=== PATIENT | male | born 1975 | race Two or more races ===

== ENCOUNTER 2021-08-09 09:51 | Outpatient (REF) | payer OTHER, SELFPAY ==
[2021-08-09 11:47] LABS: Estimated Average Glucose 266 mg/dL; Hemoglobin A1c % 10.9 %
[2021-08-09 12:13] LABS: Alanine Aminotransferase 59 U/L (0-40); Albumin Level 4.3 g/dL (3.5-5.0); Alkaline Phosphatase 74 U/L (39-117); Anion Gap 11 (12-20); Aspartate Amino Transferase 31 U/L (5-37); Bilirubin Total 0.7 mg/dL (0.0-1.0); Blood Urea Nitrogen 16 mg/dL (9-16); Calcium 9.2 mg/dL (8.4-10.2); Carbon Dioxide 28 mmol/L (22-29); Chloride 102 mmol/L (96-108); Cholesterol 208 mg/dL; Estimated Glomerular Filt Rate > 60; Glucose Fasting 299 mg/dL (60-99); HDL Cholesterol 48 mg/dL; LDL Cholesterol Calculated 144 mg/dl; Potassium 4.1 mmol/L (3.3-5.1); Sodium 137 mmol/L (135-145); Triglycerides 80 mg/dL
[2021-08-09 12:21] LABS: TSH reflex Free T4 1.07 uIU/mL (0.32-4.0)
[2021-08-09 12:25] LABS: Creatinine Urine 110.96 mg/dL; Microalbum/Creatinine Ratio Ur 69.3 ug/mg cr
[2021-08-09 12:46] LABS: Rheumatoid Factor < 15.0 IU/mL (<15.0)
[2021-08-10 17:36] LABS: Lyme Abs Screen <0.90 index
[2021-08-11 12:17] LABS: Anti Nuclear Antibody Screen NEGATIVE (NEGATIVE)
== END 2021-08-09 09:52 | disposition home or self-care (01) ==
LOC: HO.HMGCLDS 09:51
PROVIDERS: PCP Internal Medicine; Visit Provider Internal Medicine
DX: E11.9 Type 2 diabetes mellitus without complications (principal); E66.3 Overweight; E78.5 Hyperlipidemia, unspecified; I10 Essential (primary) hypertension
CPT/HCPCS: 36415; 80053; 80061; 82043; 83036; 84443; 86038; 86039; 86431; 86617; 86618

== ENCOUNTER 2022-09-16 11:03 | Outpatient (REF) | payer OTHER, SELFPAY ==
[2022-09-16 13:59] LABS: Estimated Average Glucose 160 mg/dL; Hemoglobin A1c % 7.2 %
[2022-09-16 14:01] LABS: Alanine Aminotransferase 28 U/L (0-40); Albumin Level 4.3 g/dL (3.5-5.0); Alkaline Phosphatase 51 U/L (39-117); Anion Gap 13 (12-20); Aspartate Amino Transferase 19 U/L (5-37); Bilirubin Total 0.5 mg/dL (0.0-1.0); Blood Urea Nitrogen 16 mg/dL (9-16); Calcium 9.1 mg/dL (8.4-10.2); Carbon Dioxide 25 mmol/L (22-29); Chloride 105 mmol/L (96-108); Cholesterol 195 mg/dL; Estimated Glomerular Filt Rate > 60; Glucose Fasting 130 mg/dL (60-99); HDL Cholesterol 57 mg/dL; LDL Cholesterol Calculated 125 mg/dl; Potassium 4.2 mmol/L (3.3-5.1); Sodium 139 mmol/L (135-145); Total Protein 6.8 g/dL (6.5-8.0); Triglycerides 69 mg/dL
[2022-09-16 14:20] LABS: Creatinine Urine 294.21 mg/dL; Microalbum/Creatinine Ratio Ur 65.5 ug/mg cr
== END 2022-09-16 11:04 | disposition home or self-care (01) ==
LOC: HO.HMGCLDS 11:03
PROVIDERS: PCP Internal Medicine; Visit Provider Internal Medicine
DX: E11.9 Type 2 diabetes mellitus without complications (principal); E78.5 Hyperlipidemia, unspecified; I10 Essential (primary) hypertension
CPT/HCPCS: 36415; 80053; 80061; 82043; 83036

== ENCOUNTER → 2022-10-17 12:59 | Outpatient (REF) | payer OTHER, SELFPAY | LOC: HO.SL 12:59 | PROVIDERS: PCP Internal Medicine; Visit Provider Internal Medicine | DX: G47.33 Obstructive sleep apnea (adult) (pediatric) (principal) | CPT/HCPCS: 95806 ==

== ENCOUNTER → 2022-11-01 08:04 | Outpatient (BNVA) | payer OTHER, SELFPAY | PROVIDERS: PCP Internal Medicine; Visit Provider Nurse Practitioner Family | DX: Z13.89 Encounter for screening for other disorder (principal) ==

== ENCOUNTER 2023-01-14 06:18 | Day surgery (SDC) | payer OTHER, SELFPAY ==
[2023-01-09 11:36] VITALS: BMI 43.4
--- NOTE | 2023-01-13 10:42 | HO.ANESPROP2 ---
Documented by User: Nyla Renteria NP 01/13/23 10:44 HPI - Anesthesia Eval Consult details Narrative: 47yo M for Colonoscopy FOR[facility]LY [facility] Active Problems Active Problems: All Active Problems (Updated 01/09/23 @ 11:27 by Kim Angeles RN) Acute sinus infection (Acute) Annual physical exam (Acute) Sleep apnea (Acute) Hyperlipemia (Acute) Overweight (Acute) HTN (hypertension) (Acute) DM type 2 (diabetes mellitus, type 2) (Acute) Past Medical History Medical History (Updated 01/14/23 @ 06:25 by Sabina Grimes RN) DM type 2 (diabetes mellitus, type 2) HTN (hypertension) Hyperlipemia Overweight Sleep apnea Surgical History Surgical History (Updated 01/14/23 @ 06:25 by Sabina Grimes RN) History of esophagogastroduodenoscopy (EGD) History of shoulder surgery Social History Social History Housing: House Do you presently have visiting nurse or other home services: No Patient Tobacco Use Status: Never used Tobacco e-Cigarette/Vaping Use: Never Used Current occupational status: employed Cognitive needs: No Hearing needs: No Vision needs: Yes Meds Allergies Allergy/AdvReac Type Severity Reaction Status Date / Time No Known Allergies Allergy Verified 01/14/23 06:26 [No Known Allergies*] Exam Exam Date and Time: January 13, 2023 1042 Height,Weight and Vital Signs: Height 5 ft 4 in Weight 114.759 kg Pertinent Lab Results Pertinent Lab Results: Laboratory Tests 09/20/19 09/16/22 13:12 11:07 Sodium 139 Potassium 4.2 Chloride 105 Carbon Dioxide 25 BUN 16 Creatinine 0.89 Assessment and Plan Assessment Anesthesia Assessment: Chart Reviewed Documented by User: Noah Rosenthal MD 01/14/23 17:57 PMFSH Past Medical History Medical History (Updated 01/14/23 @ 06:25 by Sabina Grimes RN) DM type 2 (diabetes mellitus, type 2) HTN (hypertension) Hyperlipemia Overweight Sleep apnea Functional capacity: independent ambulation Family History Family history of problems with anesthesia: No Surgical History Surgical History (Updated 01/14/23 @ 06:25 by Sabina Grimes RN) History of esophagogastroduodenoscopy (EGD) History of shoulder surgery History of Problems with Anesthesia: No Social History Social History Housing: House Do you presently have visiting nurse or other home services: No Patient Tobacco Use Status: Never used Tobacco e-Cigarette/Vaping Use: Never Used Current occupational status: employed Cognitive needs: No Hearing needs: No Vision needs: Yes Meds Allergies Allergy/AdvReac Type Severity Reaction Status Date / Time No Known Allergies Allergy Verified 01/14/23 06:26 [No Known Allergies*] Exam Airway Mallampati Class: III Neck ROM: Full Loose/Missing/Broken Teeth: Yes Assessment and Plan Final Anesthetic Review Family History of Problems with Anesthesia: No History of Problems with Anesthesia: No NPO: Yes ASA Class: III Final Preanesthetic Review: Meds/Allgs Chart Reviewed, Consent Obtained/Reviewed and Anes Risks/Benef Reviewed Patient Risk: Intermediate Procedure Risk: Intermediate Anesthetic Plan Anesthetic Plan: MAC: Disposition: Standard PACU
[2023-01-14 06:33] VITALS: BP 172/97; PULSE 87; RESP 16; TEMP 36.3; O2SAT 95
--- NOTE | 2023-01-14 06:42 | P.HPSUR_ITS ---
Pre-Procedural Eval Section A Date of Service: 01/14/23 Section B Chief Complaint: screening Relevant Family History (Specify if Yes): No Relevant Social History: None Present Medications: see Short Stay Collaborative assessment Medical History: Significant History (DM type 2 (diabetes mellitus, type 2) HTN (hypertension) Hyperlipemia Overweight Sleep apnea) History of Previous Operations: Relevant previous surgery/procedure and date(s) (egd,shoulder surgery) Allergies: Allergies Allergy/AdvReac Type Severity Reaction Status Date / Time No Known Allergies Allergy Verified 01/14/23 06:26 [No Known Allergies*] Review of Systems Sugical H&P ROS: Negative: Constitution, Cardiovascular, Respiratory, Neurological, Psychiatric, Hem-Onc, Allergic/Immunologic, Gastrointestinal, Genitourinary, Musculoskeletal, Integumentary, Endocrine and Eyes/Ears/No se/Throat Exam Surgical H&P Exam: Normal: HEENT, Normal: Heart, Normal: Lungs, Normal: Extremities, Normal: Abdomen, Normal: Skin and Normal: Neurological Plan Diagnosis/Plan: Unchanged I have reviewed the history and physical and performed a pertinent physical examination on my patient. No changes have occurred unless specified. Time Spent With Patient Time: Total time managing care of this patient today ____ minutes.
[2023-01-14] MEDS: Lactated Ringers 1,000 ML 100 ML IVCONT (06:47)
[2023-01-14 06:52] LABS: Glucose, Whole Blood 99 mg/dL (60-115)
--- NOTE | 2023-01-14 08:04 | W.PM.OPN ---
Operative Note Operative Note Date of Service: 01/14/23 Narrative: Operative Information Procedure Description: Colonoscopy Indication: screening Anesthesia: MAC COLONOSCOPY Instrument: Olympus variable stiffness pediatric scope 190L Colonoscopy Monitoring: Vital signs and clinical assessment, continuous EKG monitoring, Pulse oximetry, Carbon Dioxide monitoring and blood pressure monitoring were done throughout the procedure. Colon withdrawal time was 8 minutes. Procedure: The patient was placed in the left lateral decubitis position and pre-procedure medications were administered. After a digital rectal examination of the ano-rectum, the video colonoscope was inserted into the rectum and advanced through the colon to the cecum/TI. The colonoscope was slowly withdrawn in a retrograde panoramic fashion and the colon mucosa was carefully examined including a retroflexed view of the rectum. Findings and interventions are described below. Procedure Difficulty: easy Findings: Terminal Ileum-normal Cecum:normal Ascending Colon: 8-10 mm sessile polyp removed with cold snare Transverse Colon -normal Descending Colon:normal Sigmoid Colon: normal Rectum: Retroflexion with small internal hemorrhoids, grade I, x2 sessile polyps 4-6 mm removed with cold forceps Anorectum - normal Colon preparation: [place] Bowel Preparation Scale Right colon; 2 Transverse colon: 2 Left colon; 2 (0 = Unprepared colon segment with mucosa not seen due to solid stool that cannot be cleared. 1 = Portion of mucosa of the colon segment seen, but other areas of the colon segment not well seen due to staining, residual stool and/or opaque liquid. 2 = Minor amount of residual staining, small fragments of stool and/or opaque liquid, but mucosa of colon segment seen well. 3 = Entire mucosa of colon segment seen well with no residual staining, small fragments of stool or opaque liquid) Impression and Post Procedure Diagnosis: polyps internal hemorrhoids Plan: High fiber diet leaflet Avoid straining at stool, epsom salts and sitz bath, anusol supps or cream Repeat Colonoscopy in 5 years due to polyps or earlier if clinically indicated Above findings were reviewed with the patient and relevant handouts were provided if indicated.
[2023-01-14 08:08] VITALS: BP 151/92; PULSE 85; RESP 16; TEMP 37.1; O2SAT 97
[2023-01-14 08:23] VITALS: BP 171/105; PULSE 86; RESP 18; TEMP 36.1; O2SAT 97
== END 2023-01-14 08:46 | disposition home or self-care (01) ==
PROVIDERS: PCP Registered Nurse; Visit Provider Internal Medicine Gastroenterology
PROC: 0DJD8ZZ Inspection of Lower Intestinal Tract, Via Natural or Artificial Opening Endoscopic (ICD-10-PCS; CPT 45378; principal; 2023-01-14 07:30)
DX: Z12.11 Encounter for screening for malignant neoplasm of colon (principal); D12.2 Benign neoplasm of ascending colon; D12.8 Benign neoplasm of rectum; K64.0 First degree hemorrhoids; I10 Essential (primary) hypertension; E78.5 Hyperlipidemia, unspecified; E66.3 Overweight; Z68.41 Body mass index [BMI] 40.0-44.9, adult; G47.30 Sleep apnea, unspecified; E11.9 Type 2 diabetes mellitus without complications; Z79.4 Long term (current) use of insulin
CPT/HCPCS: 45385; 45380; 82947; 88305

== ENCOUNTER 2023-06-04 11:26 | Outpatient (AMB) | payer OTHER, SELFPAY ==
[2023-06-04 11:27] VITALS: BP 156/100; PULSE 102; O2SAT 96; BMI 43.4
--- NOTE | 2023-06-04 11:27 | A.OFFPC_ITS ---
Vital Signs 06/04/23 11:27 Height 5 ft 4 in Weight 253 lb BMI 43.4 BP 156/100 H Blood Pressure Location Lt brachial Position Sitting Pulse 102 H Pulse Source Pulse Oximeter Pulse Oximetry (%) 96 Oxygen Delivery Method Room Air Intake Visit Reasons: [facility]/ 06-01/Dizziness/ Vomitting Intake Note: Pt is here today for ER follow up visit. 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 Allergies No Known Allergies [No Known Allergies*] Allergy (Verified 06/04/23 11:29) Medication List - Last Reconciled 06/04/23 by Renetta Matute MD amlodipine 5 mg PO DAILY amlodipine-benazepril 10-40 mg 1 cap PO DAILY docusate sodium 100 mg PO DAILY dulaglutide (Trulicity) 1.5 mg (0.5 mL) subcut QWEEK flash glucose scanning reader (Extreme DA Ceci 14 Day [place]) As directed flash glucose sensor (DroplrStyle Ceci 14 Day Sensor kit) monitor blood sugar, change every 14 days fluticasone propionate 50 mcg/actuation (Flonase Allergy Relief) 1 spray intranasal Q12H 30 days insulin degludec (Tresiba FlexTouch U-100 insulin) 30 units (0.3 mL) subcut DAILY lisinopril 40 mg PO DAILY metoprolol succinate ER 100 mg PO DAILY Tobacco use date assessed: 06/04/23 HPI [place]/ 06-01/Dizziness/ Vomitting HPI Details Pt c/o recurrent episodes of dizziness with nausea, vomiting and went to ER twice in the last month. Pt c/o L ear tinnitus and notice some hearing loss for a few months. Pt tried Meclizine without relief. Insulin-dependent diabetes has not been well controlled. Patient sees pin machine tender occasionally the last time 3 months and he is planning to schedule an appointment with the next week. He ran out of insulin for a few days but has been able to feel the prescription now. He has been taking amlodipine 5 mg and lisinopril 40 mg for hypertension. [facility]LY [facility] Medical History (Updated 06/04/23 @ 12:28 by Renetta Matute MD) Sleep apnea Hyperlipemia Overweight HTN (hypertension) DM type 2 (diabetes mellitus, type 2) Surgical History (Updated 01/31/23 @ 12:19 by Tee Cardoso) Hx of colonoscopy History of shoulder surgery History of esophagogastroduodenoscopy (EGD) Family History (Updated 06/04/23 @ 11:34 by Roya Lazaro [place]) Father No problems noted. Mother Substance use disorder Social History Housing: House Do you presently have visiting nurse or other home services: No Patient Tobacco Use Status: Never used Tobacco e-Cigarette/Vaping Use: Never Used Current occupational status: employed Cognitive needs: No Hearing needs: No Vision needs: Yes Questionnaire PHQ-9 Over the last 2 weeks, how often have you been bothered by any of the following problems? 1. Little interest or pleasure in doing things: not at all 2. Feeling down, depressed, or hopeless: not at all 3. Trouble falling or staying asleep, or sleeping too much: not at all 4. Feeling tired or having little energy: not at all 5. Poor appetite or overeating: not at all 6. Feeling bad about yourself - or that you are a failure or have let yourself or your family down: not at all 7. Trouble concentrating on things, such as reading the newspaper or watching television: not at all 8. Moving or speaking so slowly that other people could have noticed. Or the opposite - being so fidgety or restless that you have been moving around a lot more than usual: not at all 9. Thoughts that you would be better off or of hurting yourself in some way: not at all Total score: 0 Depression Screening Interpretation: Negative Depression Screening Done: Yes Source: Developed by Drs. Abimael Dinh, Hedy Lockett, Damon Frank and colleagues, with an educational reggie from [employer]. Thrive Questionnaire Date Thrive assessed: 06/04/23 I am a: Patient What is your living situation today?: I have a steady place to live Within the past 12 months, did the food you bought not last and you didn't have the money to get more?: Never true Within the past 12 months, did you worry whether your food would run out before you got money to buy more?: Never true Do you have trouble paying for medicines?: No Do you have trouble getting transportation to medical appointments?: No Do you have trouble paying your heating and electricity bill?: No Do you have trouble taking care of your child, family member or friend?: No Do you have trouble with day-to-day activities such as bathing, preparing meals, shopping, managing finances, etc.?: No Are you currently unemployed and looking for a job?: No Are you interested in more education?: No Please select the resources that you would like help with: None FAITH-7 AMB Questionnaire FAITH-7 Date FAITH - 7 assessed: 06/04/23 Feeling nervous, anxious, or on edge: 0 = Not at all Not being able to stop or control worryin = Not at all Worrying too much about different things: 0 = Not at all Trouble relaxin = Not at all Being so restless that it is hard to sit still: 0 = Not at all Becoming easily annoyed or irritable: 0 = Not at all Feeling afraid as if something awful might happen: 0 = Not at all Total FAITH-7 score (0-4 normal; 5-9 mild; 10-14 moderate; 15-21 severe): 0 Source: Developed by Drs. Abimael Dinh, Hedy Lockett, Damon Frank and colleagues, with an educational reggie from [employer]. Review of Systems Const All systems reviewed & are unremarkable except as noted in HPI and below Reports no additional complaints Eyes Reports no additional complaints ENT Reports no additional complaints Card Reports no additional complaints Resp Reports no additional complaints GI Reports no additional complaints Physical exam (Primary Care) Vital Signs: Last Vital Signs Pulse 102 H 06/04/23 11:27 BP 156/100 H 06/04/23 11:27 Pulse Ox 96 06/04/23 11:27 Oxygen Delivery Method Room Air 06/04/23 11:27 BMI result Body Mass Index 43.4 Tobacco/Smoking Status: Tobacco use Status Tobacco use date assessed 06/04/23 06/04/23 11:33 Patient Tobacco Use Status Never used Tobacco 06/04/23 11:33 e-Cigarette/Vaping Use Never Used 06/04/23 11:33 PHQ-9: PHQ-9 Score PHQ-9: Total score 0 06/04/23 12:10 Depression Screening Interpretation: Negative Thrive Assessment: Date of Thrive Assessment Date Thrive assessed 06/04/23 06/04/23 11:33 Const General: no acute distress HENMT Head: Yes normal to inspection Ears: hearing grossly normal bilaterally and TM's normal bilaterally General nose exam: Normal external nose present Face and sinus: Yes normal facial exam Throat: Yes posterior oropharynx normal Eyes General: appearance normal, both eyes and all related structures Neck Neck: Yes no lymphadenopathy and Yes supple Resp Effort & Inspection: normal respiratory effort Auscultation: clear to auscultation bilaterally Cardio Rhythm: regular rhythm Heart sounds: S1 normal heart sound present and S2 normal heart sound present GI Inspection: Yes normal to inspection Palpation (GI): Soft to palpation Percussion: Yes normal to percussion Auscultation: normal bowel sounds Assessment and Plan Assessment & Plan (1) Vertigo: Code(s): R42 - Dizziness and giddiness Plan: For persistent vertigo with some hearing lost and left-sided tinnitus MRI of her brain will be obtained to rule out acoustic neuroma or CVA. Patient will be referred to ENT for evaluation of hearing loss and tinnitus (2) Tinnitus: Code(s): H93.19 - Tinnitus, unspecified ear (3) Hearing loss: Code(s): H91.90 - Unspecified hearing loss, unspecified ear (4) HTN (hypertension): Code(s): I10 - Essential (primary) hypertension Plan: Change 5 mg of amlodipine and 40 mg of lisinopril to Lotrel 10/40 and add labetalol 200 mg twice a day follow-up in 2 weeks for blood pressure check (5) DM type 2 (diabetes mellitus, type 2): Code(s): E11.9 - Type 2 diabetes mellitus without complications Plan: ADA diet increase physical activity weight loss discussed with the patient. He will continue the same medications and will call to schedule an appointment with his pin machine tender. Patient will have a fasting labs including A1c before his next visit (6) Hyperlipemia: Code(s): E78.5 - Hyperlipidemia, unspecified Plan: Check lipid profile Orders: Orders MR brain wo/w con w neuroquant Today H93.19 - Tinnitus, unspecified ear, R42 - Dizziness and giddiness Comprehensive [place]. Panel Fast Today E11.9 - Type 2 diabetes mellitus without complications, E78.5 - Hyperlipidemia, unspecified, I10 - Essential (primary) hypertension Microalbumin, Random (w Creat) Today E11.9 - Type 2 diabetes mellitus without complications, E78.5 - Hyperlipidemia, unspecified, I10 - Essential (primary) hypertension Hemoglobin A1c Today E11.9 - Type 2 diabetes mellitus without complications, E78.5 - Hyperlipidemia, unspecified, I10 - Essential (primary) hypertension Lipid Panel Today E11.9 - Type 2 diabetes mellitus without complications, E78.5 - Hyperlipidemia, unspecified, I10 - Essential (primary) hypertension Complete Blood Count Auto Diff Today E11.9 - Type 2 diabetes mellitus without complications, E78.5 - Hyperlipidemia, unspecified, I10 - Essential (primary) hypertension Referrals Ear/Nose/Throat Referral H91.90 - Unspecified hearing loss, unspecified ear, H93.19 - Tinnitus, unspecified ear, R42 - Dizziness and giddiness Medications: New labetalol 200 mg PO BID 180 tabs 0RF amlodipine-benazepril 10-40 mg 1 cap PO DAILY 30 caps 0RF azithromycin start on day 2 of therapy 250 mg PO DAILY 6 tabs 0RF 6 days Discontinued amlodipine Discontinued Reason: Doctor's Order 5 mg PO DAILY 30 tabs 4RF Coding Level of Care Code Est Pt Level 4 (24567) Diagnoses Vertigo R42 Tinnitus H93.19 Hearing loss H91.90 HTN (hypertension) I10 DM type 2 (diabetes mellitus, type 2) E11.9 Hyperlipemia E78.5
== END 2023-06-04 12:54 | disposition home or self-care (01) ==
PROVIDERS: PCP Internal Medicine; Visit Provider Internal Medicine
DX: R42 Dizziness and giddiness (principal); E11.9 Type 2 diabetes mellitus without complications; H93.12 Tinnitus, left ear; H91.92 Unspecified hearing loss, left ear; I10 Essential (primary) hypertension; E78.5 Hyperlipidemia, unspecified
CPT/HCPCS: 99214

== ENCOUNTER 2023-07-09 12:59 | Outpatient (AMB) | payer OTHER, SELFPAY ==
[2023-07-09 13:15] VITALS: BP 140/100; PULSE 89; TEMP 36.1; O2SAT 98; BMI 44.5
--- NOTE | 2023-07-09 13:15 | AM.OFFWIN_ITS ---
Intake Vital Signs 07/09/23 13:15 Height 5 ft 4 in Weight 259 lb BMI 44.5 BP 140/100 H Blood Pressure Location Lt brachial Position Sitting Pulse 89 Pulse Source Pulse Oximeter Temp 97.0 F Temp Source Temporal Artery Scan Pulse Oximetry (%) 98 Oxygen Delivery Method Room Air Intake Visit Reasons: EP, chest congestion ([phone]) Intake Note: pt is here today for chest congestion started friday Patient Tobacco Use Status: Never used Tobacco Allergies No Known Allergies [No Known Allergies*] Allergy (Verified 07/09/23 13:16) Do you need a note to return to daycare/school/sports/work: No HPI HPI Comments History of Present Illness Details Pt is a diabetic who presents with covid Onset last tested + Friday He said + congestion, facial sinus pressure cough Slight phlegm No OTC medicine taken Sugar controlled No fever or chills + fatigue No body aches No dizziness or LOC PFSH Medical History (Updated 07/09/23 @ 13:56 by Liz Friedman PA-C) Sleep apnea Hyperlipemia Overweight HTN (hypertension) DM type 2 (diabetes mellitus, type 2) Surgical History (Updated 01/31/23 @ 12:19 by Tee Cardoso) Hx of colonoscopy History of shoulder surgery History of esophagogastroduodenoscopy (EGD) Family History (Updated 06/04/23 @ 11:34 by Roya Lazaro [place]) Father No problems noted. Mother Substance use disorder Social History Housing: House Do you presently have visiting nurse or other home services: No Patient Tobacco Use Status: Never used Tobacco e-Cigarette/Vaping Use: Never Used Current occupational status: employed Cognitive needs: No Hearing needs: No Vision needs: Yes Review of Systems Const Denies chills, Reports fatigue and Denies fever(s) Eyes Denies change in vision ENT Denies otalgia, Reports nasal congestion, Reports sinus pain, Reports sinus pressure, Denies sore throat and Denies throat swelling Card Denies chest pain and Denies dyspnea Resp Reports cough and Denies dyspnea Musc Denies myalgias Endo Reports fatigue Aller/Immun Denies throat swelling Physical Exam Vital Signs: Last Vital Signs Temp 97.0 F 07/09/23 13:15 Pulse 89 07/09/23 13:15 BP 140/100 H 07/09/23 13:15 Pulse Ox 98 07/09/23 13:15 Oxygen Delivery Method Room Air 07/09/23 13:15 BMI result Body Mass Index 44.5 General: Non-toxic, NAD. Speaking full sentences. Skin: Warm dry throughout Eye: EOMI HENT: Airway patent. Uvula midline. No pharyngeal erythema or edema. No ANIMAL BREEDER. +rhinorrhea Bilateral canals clear. TM non-erythematous, non-bulging. No TM perforation or hemotympanum noted. Respiratory: CTA bilaterally. No wheezes, rales or rhonchi Cardiac: RRR. No murmur MSK: Full ROM extremities. Neurology: A/O. No aphasia or facial droop. Gait without abnormality Psych: Good mood and affect Assessment & Plan Assessment & Plan (1) HTN (hypertension): Code(s): I10 - Essential (primary) hypertension Qualifiers: Hypertension type: unspecified Qualified Code(s): I10 - Essential (primary) hypertension Plan: we discussed control he has not taken his meds today Will monitor (2) Upper respiratory disease: Code(s): J39.9 - Disease of upper respiratory tract, unspecified (3) COVID: Code(s): U07.1 - COVID-19 Plan Lungs CTA HTN addressed Albuterol refill provided Prednisone/Benzonatate for cough No xray at this time due to clear lungs F/U with PCP Discussed 5 day isolation and then 5 additional day mask wearing ED if worsening All questions answered and he gave verbal understanding Medications: New albuterol sulfate 1.25 mg (3 mL) inhalation Q4-6H PRN 75 mL 0RF shortness of breath or wheezing U07.1 - COVID-19 prednisone 40 mg (2 x 20 mg) PO DAILY 4 days 8 tabs 0RF U07.1 - COVID-19 benzonatate 100 mg PO BID-TID PRN 14 caps 0RF cough U07.1 - COVID-19 Coding Level of Care Code Est Pt Level 3 (44071) Diagnoses Hypertension, unspecified type I10 Hypertension type: unspecified Upper respiratory disease J39.9 COVID U07.1
== END 2023-07-09 14:31 | disposition home or self-care (01) ==
PROVIDERS: PCP Internal Medicine; Visit Provider Physician Assistant
DX: I10 Essential (primary) hypertension (principal); J39.9 Disease of upper respiratory tract, unspecified; U07.1 COVID-19
CPT/HCPCS: 99213

== ENCOUNTER 2023-07-14 11:21 | Outpatient (AMB) | payer OTHER, SELFPAY ==
--- NOTE | 2023-07-14 12:54 | MHC.OFFWIV ---
Intake Vital Signs 07/14/23 12:55 Height 5 ft 4 in Weight 259 lb BMI 44.5 BP 160/100 H Blood Pressure Location Lt brachial Position Sitting Pulse 87 Pulse Source Pulse Oximeter Temp 97.9 F Pulse Oximetry (%) 96 Oxygen Delivery Method Room Air Intake Visit Reasons: EP, right side rib pain [phone] Intake Note: pt is here today for rt side rib pain started friday Patient Tobacco Use Status: Never used Tobacco Allergies No Known Allergies [No Known Allergies*] Allergy (Verified 07/14/23 13:13) Do you need a note to return to daycare/school/sports/work: Yes HPI EP, right side rib pain [phone] HPI Details 48-year-old male presents to the office for a sick visit. Patient tested positive for COVID last week. He has been having a lot of cough and in the process sprain the muscles around the rib in the past 3 days. His work has advised him to go on short-term disability. For that patient had to be re-evaluated here. COVID symptoms are improving. His cough is getting better. [facility] Medical History (Updated 07/09/23 @ 13:56 by Liz Friedman PA-C) Sleep apnea Hyperlipemia Overweight HTN (hypertension) DM type 2 (diabetes mellitus, type 2) Surgical History (Updated 01/31/23 @ 12:19 by Tee Cardoso) Hx of colonoscopy History of shoulder surgery History of esophagogastroduodenoscopy (EGD) Family History (Updated 06/04/23 @ 11:34 by Roya Lazaro [facility]) Father No problems noted. Mother Substance use disorder Social History Housing: House Do you presently have visiting nurse or other home services: No Patient Tobacco Use Status: Never used Tobacco e-Cigarette/Vaping Use: Never Used Current occupational status: employed Cognitive needs: No Hearing needs: No Vision needs: Yes Physical Exam Vital Signs: Last Vital Signs Temp 97.9 F 07/14/23 12:55 Pulse 87 07/14/23 12:55 BP 160/100 H 07/14/23 12:55 Pulse Ox 96 07/14/23 12:55 Oxygen Delivery Method Room Air 07/14/23 12:55 BMI result Body Mass Index 44.5 Const General: cooperative and healthy appearing Nutritional Appearance: well nourished Orientation/consciousness: patient oriented x3 Limitations: no limitations HEENT Head: Yes normal to inspection Eyes General: appearance normal, both eyes and all related structures Neck Neck: Yes normal visual inspection Resp Effort & Inspection: normal respiratory effort Neuro General: patient oriented x3 Assessment & Plan Assessment & Plan (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 Documentation for the short-term disability done. No medication needed at the moment. Coding Level of Care Code Est Pt Level 3 (61868) Diagnoses Costal chondritis M94.0
[2023-07-14 12:55] VITALS: BP 160/100; PULSE 87; TEMP 36.6; O2SAT 96; BMI 44.5
== END 2023-07-14 13:46 | disposition home or self-care (01) ==
PROVIDERS: PCP Internal Medicine; Visit Provider Internal Medicine
DX: M94.0 Chondrocostal junction syndrome [Tietze] (principal)
CPT/HCPCS: 99213

== ENCOUNTER 2023-07-16 10:54 | Outpatient (AMB) | payer OTHER, SELFPAY ==
--- NOTE | 2023-07-16 12:05 | MHC.PC.OV ---
Vital Signs 07/16/23 12:06 Height 5 ft 4 in Weight 254 lb BMI 43.6 BP 130/92 H Blood Pressure Location Lt brachial Position Sitting Pulse 90 Pulse Source Pulse Oximeter Pulse Oximetry (%) 96 Oxygen Delivery Method Room Air Intake Visit Reasons: 2 week Follow up Intake Note: Pt is here today for 2 weeks follow up visit. Allergies No Known Allergies [No Known Allergies*] Allergy (Verified 07/16/23 12:07) Medication List - Last Reconciled 07/16/23 by Renetta Matute MD albuterol sulfate 1.25 mg (3 mL) inhalation Q4-6H PRN amlodipine-benazepril 10-40 mg 1 cap PO DAILY docusate sodium 100 mg PO DAILY dulaglutide (Trulicity) 1.5 mg (0.5 mL) subcut QWEEK flash glucose scanning reader ([employer] Ceci 14 Day [place]) As directed flash glucose sensor ([employer] Ceci 14 Day Sensor kit) monitor blood sugar, change every 14 days fluticasone propionate 50 mcg/actuation (Flonase Allergy Relief) 1 spray intranasal Q12H 30 days insulin degludec (Tresiba FlexTouch U-100 insulin) 30 units (0.3 mL) subcut DAILY labetalol 200 mg PO BID Tobacco use date assessed: 06/04/23 HPI 2 week Follow up HPI Details Pt presents for f/u HTN, IDDM. Patient reports improved fasting blood glucose reading down to less than 200s most of the days. Patient has been tolerating Trulicity well. He has been following ADA diet [facility] Medical History (Updated 07/09/23 @ 13:56 by Liz Friedman PA-C) Sleep apnea Hyperlipemia Overweight HTN (hypertension) DM type 2 (diabetes mellitus, type 2) Surgical History (Updated 01/31/23 @ 12:19 by Tee Cardoso) Hx of colonoscopy History of shoulder surgery History of esophagogastroduodenoscopy (EGD) Family History (Updated 06/04/23 @ 11:34 by Roya Lazaro Heaven) Father No problems noted. Mother Substance use disorder Social History Housing: House Do you presently have visiting nurse or other home services: No Patient Tobacco Use Status: Never used Tobacco e-Cigarette/Vaping Use: Never Used Current occupational status: employed Cognitive needs: No Hearing needs: No Vision needs: Yes Questionnaire Thrive Questionnaire Date Thrive assessed: 06/04/23 FAITH-7 AMB Questionnaire FAITH-7 Date FAITH - 7 assessed: 06/04/23 Source: Developed by Drs. Abimael Dinh, Hedy Lockett, Damon Frank and colleagues, with an educational reggie from [employer]. Review of Systems Const All systems reviewed & are unremarkable except as noted in HPI and below Reports no additional complaints Eyes Reports no additional complaints ENT Reports no additional complaints Card Reports no additional complaints Resp Reports no additional complaints GI Reports no additional complaints Physical exam (Primary Care) Vital Signs: Last Vital Signs Pulse 90 07/16/23 12:06 BP 130/92 H 07/16/23 12:06 Pulse Ox 96 07/16/23 12:06 Oxygen Delivery Method Room Air 07/16/23 12:06 BMI result Body Mass Index 43.6 Tobacco/Smoking Status: Tobacco use Status Tobacco use date assessed 06/04/23 07/16/23 12:09 Patient Tobacco Use Status Never used Tobacco 07/16/23 12:09 e-Cigarette/Vaping Use Never Used 07/16/23 12:09 Thrive Assessment: Date of Thrive Assessment Date Thrive assessed 06/04/23 07/16/23 12:09 Const General: no acute distress HENMT Ears: hearing grossly normal bilaterally Eyes General: appearance normal, both eyes and all related structures Resp Effort & Inspection: normal respiratory effort Auscultation: clear to auscultation bilaterally Cardio Rhythm: regular rhythm Heart sounds: S1 normal heart sound present and S2 normal heart sound present GI Palpation (GI): Soft to palpation Percussion: Yes normal to percussion Auscultation: normal bowel sounds Assessment and Plan Assessment & Plan (1) HTN (hypertension): Code(s): I10 - Essential (primary) hypertension Qualifiers: Hypertension type: unspecified Qualified Code(s): I10 - Essential (primary) hypertension Plan: Add Dyazide to amlodipine and benazepril and check BMP in 1 week, low sodium diet increase exercise weight loss discussed with the patient (2) DM type 2 (diabetes mellitus, type 2): Code(s): E11.9 - Type 2 diabetes mellitus without complications Plan: ADA diet increase physical activity weight loss discussed with the patient, Patient was advised to continue Trulicity and Tresiba and add Humalog with sliding scale before main meals (3) Overweight: Code(s): E66.3 - Overweight Plan: Weight loss discussed with the patient follow-up in 1 month with fasting labs before Orders: Orders Basic Metabolic Panel 1 Week I10 - Essential (primary) hypertension Medications: New Novolog PenFill U-100 Insulin (insulin aspart U-100) 6 units before meal if glucose is 90-160, 12 units for >160 12 , 10 units (0.1 mL) subcut TID 15 mL 3RF NS triamterene-hydrochlorothiazid 37.5-25 mg 1 tab PO DAILY 90 tabs 1RF Discontinued labetalol Discontinued Reason: Doctor's Order 200 mg PO BID 180 tabs 0RF Coding Level of Care Code Est Pt Level 4 (10531) Diagnoses Hypertension, unspecified type I10 Hypertension type: unspecified DM type 2 (diabetes mellitus, type 2) E11.9 Overweight E66.3
[2023-07-16 12:06] VITALS: BP 130/92; PULSE 90; O2SAT 96; BMI 43.6
== END 2023-07-16 15:52 | disposition home or self-care (01) ==
PROVIDERS: PCP Internal Medicine; Visit Provider Internal Medicine
DX: I10 Essential (primary) hypertension (principal); E11.9 Type 2 diabetes mellitus without complications; E66.3 Overweight
CPT/HCPCS: 99214

== ENCOUNTER 2023-08-04 12:11 | Outpatient (REF) | payer OTHER, SELFPAY ==
[2023-08-04 14:08] LABS: Alanine Aminotransferase 37 U/L (0-40); Albumin Level 4.4 g/dL (3.5-5.0); Alkaline Phosphatase 65 U/L (39-117); Anion Gap 11 (12-20); Aspartate Amino Transferase 23 U/L (5-37); Bilirubin Total 0.6 mg/dL (0.0-1.0); Blood Urea Nitrogen 16 mg/dL (9-16); Calcium 9.2 mg/dL (8.4-10.2); Carbon Dioxide 28 mmol/L (22-29); Chloride 102 mmol/L (96-108); Cholesterol 210 mg/dL (<200); Estimated Glomerular Filt Rate > 60; Glucose Fasting 142 mg/dL (60-99); HDL Cholesterol 44 mg/dL (>40); LDL Cholesterol Calculated 153 mg/dL (<100); Sodium 137 mmol/L (135-145); Total Protein 7.4 g/dL (6.5-8.0); Triglycerides 69 mg/dL (<150)
== END 2023-08-04 12:12 | disposition home or self-care (01) ==
LOC: HO.HMGCLDS 12:11
PROVIDERS: PCP Internal Medicine; Visit Provider Internal Medicine
DX: I10 Essential (primary) hypertension (principal); E11.9 Type 2 diabetes mellitus without complications; E78.5 Hyperlipidemia, unspecified
CPT/HCPCS: 36415; 80053; 80061; 82043; 82570; 83036; 85025

== ENCOUNTER 2023-08-05 13:10 | Outpatient (REF) | payer OTHER, SELFPAY ==
--- NOTE | ~2023-08-05 | MR_ITS ---
EXAMINATION: MR BRAIN WITHOUT AND WITH CONTRAST CLINICAL INFORMATION: 48-year-old with tinnitus and vertigo. COMPARISON: None available. TECHNIQUE: Multiplanar, multisequence MRI of the brain was obtained before and after the intravenous administration of 10 mL Gadavist. FINDINGS: BRAIN VOLUME: Within normal limits within the limitations of qualitative assessment. STRUCTURAL: Incidental note is made of a cavum septum pellucidum and cavum vergae, normal variant. BRAIN AND MENINGES: DWI sequence demonstrates no restricted diffusion to suggest acute or subacute cerebral ischemia. The brain is normal in morphology. There is a 5 mm nonspecific focus of FLAIR/T2 hyperintensity in the subcortical white matter along the right mesial frontal convexity. There is a nonspecific punctate FLAIR signal hyperintensity in the right periatrial white matter. Otherwise, the remainder of the brain is normal in signal intensity. Gradient refocused imaging demonstrates no abnormal susceptibility-weighted signal loss to suggest hemorrhage, hemosiderin staining or abnormal mineralization. No extra-axial fluid collections, space-occupying process or mass effect are identified. VENTRICLES AND SUBARACHNOID SPACES: The ventricular system and subarachnoid spaces are within normal range; there is no hydrocephalus. ORBITAL STRUCTURES: The visualized orbital structures are grossly unremarkable within the limitations of the study. VASCULAR: Signal voids are noted in the visualized major intracranial vessels. There is considerable tortuosity of both carotid siphons which makes it difficult to exclude aneurysms at this location. If this is a clinical concern, MR angiography of the brain would be of additional value to further assess. OSSEOUS STRUCTURES, SINUSES/MASTOIDS, EXTRACRANIAL SOFT TISSUES: Unremarkable. MR/MR head/brain wo/w con IMPRESSION: 1. A few small nonspecific white matter T2 hyperintensities are noted in the right cerebral hemisphere as described above, of indeterminate significance. 2. No acute intracranial process. No evidence for infarction, hemorrhage, extra-axial fluid collection, space-occupying process, mass effect or hydrocephalus. 3. Tortuous appearance to the carotid siphons bilaterally which makes it difficult to exclude aneurysms at this location. MR angiography of the brain would be of additional value to further assess this if clinically warranted.
[2023-08-05] MEDS: gadobutroL 10 ML VIAL IVPUSH (14:21)
== END 2023-08-05 13:11 | disposition home or self-care (01) ==
LOC: HO.MRI 13:10
PROVIDERS: PCP Internal Medicine; Visit Provider Internal Medicine
DX: H93.19 Tinnitus, unspecified ear (principal); R42 Dizziness and giddiness
CPT/HCPCS: 70553; A9585

== ENCOUNTER 2023-09-15 13:54 | Outpatient (AMB) | payer OTHER, SELFPAY ==
[2023-09-15 14:16] VITALS: BP 130/78; PULSE 106; TEMP 37.6; O2SAT 96; BMI 43.9
--- NOTE | 2023-09-15 14:16 | MHC.OFFWIV ---
Intake Vital Signs 09/15/23 14:16 Height 5 ft 4 in Weight 256 lb BMI 43.9 BP 130/78 Blood Pressure Location Lt brachial Position Sitting Pulse 106 H Pulse Source Pulse Oximeter Temp 99.7 F Temp Source Temporal Artery Scan Pulse Oximetry (%) 96 Oxygen Delivery Method Room Air Intake Visit Reasons: EP Burning when urinating Intake Note: pt is here today for burning when urinating started 1 month ago Patient Tobacco Use Status: Never used Tobacco Allergies No Known Allergies [No Known Allergies*] Allergy (Verified 09/15/23 14:19) Do you need a note to return to daycare/school/sports/work: No HPI HPI Comments History of Present Illness Details The patient presents to urgent care for evaluation of dysuria x3 days. He has some pain and difficulty urinating. He took some amoxicillin at home which did help his alleviate his symptoms. Denies nausea vomiting fever chills back pain. Patient is and has not had sexual intercourse in 4 months and does not suspect STD [facility] Medical History (Updated 08/26/23 @ 15:56 by Renetta Matute MD) Sleep apnea Hyperlipemia Overweight HTN (hypertension) DM type 2 (diabetes mellitus, type 2) Surgical History (Updated 01/31/23 @ 12:19 by Tee Cardoso) Hx of colonoscopy History of shoulder surgery History of esophagogastroduodenoscopy (EGD) Family History (Updated 06/04/23 @ 11:34 by NASIR Faustin) Father No problems noted. Mother Substance use disorder Social History Housing: House Do you presently have visiting nurse or other home services: No Patient Tobacco Use Status: Never used Tobacco e-Cigarette/Vaping Use: Never Used Current occupational status: employed Cognitive needs: No Hearing needs: No Vision needs: Yes Review of Systems Const Denies headache(s) ENT Denies headache(s) GI Denies abdominal pain and Denies diarrhea Neuro Denies headache(s) Physical Exam Vital Signs: Last Vital Signs Temp 99.7 F 09/15/23 14:16 Pulse 106 H 09/15/23 14:16 BP 130/78 09/15/23 14:16 Pulse Ox 96 09/15/23 14:16 Oxygen Delivery Method Room Air 09/15/23 14:16 BMI result Body Mass Index 43.9 Const General: healthy appearing and no acute distress HEENT Head: Yes normal to inspection Resp Effort & Inspection: normal respiratory effort and able to speak in complete sentences GI Inspection: Yes normal to inspection Results AMB Urinalysis, Automated UA Leukoctes 70 Kwadwo/uL Last Edit by Gomez Trujillo CMA on 09/15/23 14:23 UA Nitrite Negative Last Edit by Gomez Trujillo CMA on 09/15/23 14:23 UA Urobilinogen 0.2 mg/dL Last Edit by Gomez Trujillo CMA on 09/15/23 14:23 UA Protein 30 mg/dL Last Edit by Gomez Trujillo CMA on 09/15/23 14:23 UA pH 6.0 Last Edit by Gomez Trujillo CMA on 09/15/23 14:23 UA Blood 10 Logan/uL Last Edit by Gomez Trujillo CMA on 09/15/23 14:23 UA Specific [place] 1.025 Last Edit by Gomez Trujillo CMA on 09/15/23 14:23 UA Ketone Negative Last Edit by Gomez Trujillo CMA on 09/15/23 14:23 UA Bilirubin 0 mg/dL Last Edit by Gomez Trujillo CMA on 09/15/23 14:23 UA Glucose 0 mg/dL Last Edit by Gomez Trujillo CMA on 09/15/23 14:23 Results Reviewed Results Reviewed: Laboratory Last Values Urine pH (Auto) 6.0 09/15/23 14:23 Specific [place] (Auto) 1.025 09/15/23 14:23 Urine Protein (Auto) 30 mg/dL 09/15/23 14:23 Glucose (UA)(Auto) 0 mg/dL 09/15/23 14:23 Urine Ketones (Auto) Negative 09/15/23 14:23 Urine Blood (Auto) 10 Logan/uL 09/15/23 14:23 Urine Nitrite (Auto) Negative 09/15/23 14:23 Urine Bilirubin (Auto) 0 mg/dL 09/15/23 14:23 Urine Urobilinogen (Auto) 0.2 mg/dL 09/15/23 14:23 Leukocyte Esterase (Auto) 70 Kwadwo/uL 09/15/23 14:23 Assessment & Plan Assessment & Plan (1) UTI (urinary tract infection), uncomplicated: Code(s): N39.0 - Urinary tract infection, site not specified Plan Symptoms are suggestive of a UTI especially in the setting that patient took some antibiotics which would affect her urine dip results. Will send it for culture and initiate treatment with Bactrim. Orders: Orders AMB Urinalysis Automated Today Z13.9 - Encounter for screening, unspecified Medications: New sulfamethoxazole-trimethoprim 800-160 mg (Bactrim DS) 1 tab PO BID 7 days 14 tabs 0RF Coding Level of Care Code Est Pt Level 3 (23444) Diagnoses UTI (urinary tract infection), uncomplicated N39.0
== END 2023-09-15 15:36 | disposition home or self-care (01) ==
PROVIDERS: PCP Internal Medicine; Visit Provider Emergency Medicine
DX: N39.0 Urinary tract infection, site not specified (principal); R30.0 Dysuria
CPT/HCPCS: 81003; 99213

== ENCOUNTER 2023-09-15 15:55 | Outpatient (REF) | payer OTHER, SELFPAY | END 2023-09-15 15:56 | disposition home or self-care (01) | LOC: HO.LNP 15:55 | PROVIDERS: Visit Provider Emergency Medicine | DX: R30.0 Dysuria (principal) | CPT/HCPCS: 87086; 87088; 87186 ==

== ENCOUNTER 2023-09-21 09:08 | Outpatient (REF) | payer OTHER, SELFPAY ==
--- NOTE | ~2023-09-21 | MR_ITS ---
EXAMINATION: MR ANGIOGRAPHY BRAIN WITHOUT CONTRAST CLINICAL INFORMATION: Follow-up finding in question on prior brain MRI. Rule out aneurysm. Headaches. COMPARISON: Brain MRI dated 08/05/2023. TECHNIQUE: 3-D [id number] MR angiography of the [place] of [place] acquired. FINDINGS: The internal carotid arteries are normal in caliber. No aneurysm is visible. The HILARIO and MCA vascular complexes are normal bilaterally. The posterior cerebral arteries are normal. The vertebrobasilar vasculature is unremarkable. MR/MR angio head wo con IMPRESSION: Normal MRA of the head.
== END 2023-09-21 09:09 | disposition home or self-care (01) ==
LOC: HO.MRI 09:08
PROVIDERS: PCP Internal Medicine; Visit Provider Internal Medicine
DX: R90.89 Other abnormal findings on diagnostic imaging of central nervous system (principal)
CPT/HCPCS: 70544

== ENCOUNTER 2023-09-24 13:07 | Outpatient (AMB) | payer OTHER, SELFPAY ==
[2023-09-24 13:12] VITALS: BP 120/78; PULSE 92; O2SAT 96; BMI 43.3
--- NOTE | 2023-09-24 13:12 | A.OFFPC_ITS ---
Vital Signs 09/24/23 13:12 Height 5 ft 4 in Weight 252 lb BMI 43.3 BP 120/78 Blood Pressure Location Lt brachial Position Sitting Pulse 92 Pulse Source Pulse Oximeter Pulse Oximetry (%) 96 Oxygen Delivery Method Room Air Intake Visit Reasons: PE Intake Note: Pt is here today for PE. Allergies benazepril Adverse Reaction (Intermediate, Verified 09/24/23 14:33) Cough Medication List - Last Reconciled 09/24/23 by Renetta Matute MD albuterol sulfate 1.25 mg (3 mL) inhalation Q4-6H PRN amlodipine-valsartan 10-320 mg 1 tab PO DAILY flash glucose scanning reader ([employer] Ceci 14 Day [place]) As directed flash glucose sensor ([employer] Ceci 14 Day Sensor kit) monitor blood sugar, change every 14 days fluticasone propionate 50 mcg/actuation (Flonase Allergy Relief) 1 spray intranasal Q12H 30 days insulin degludec (Tresiba FlexTouch U-100 insulin) 30 units (0.3 mL) subcut DAILY Novolog FlexPen U-100 Insulin (insulin aspart U-100) 6 units before meal if glucose is 90-160, 12 units if glucose >160 subcutaneously use as directed; MDD 36 units NS tirzepatide (Mounjaro) 2.5 mg (0.1667 mL) subcut QWEEK triamcinolone acetonide 0.025% 1 appl topical DAILY triamterene-hydrochlorothiazid 37.5-25 mg 1 tab PO DAILY Tobacco use date assessed: 09/24/23 Dental Screening Dental Screen Date: 09/24/23 Did you have a dental visit in the last 12 months?: Yes Did you have a dental problem in the last 6 months where you did not have access to dental care?: No Was dental information given to patient?: Patient has dentist HPI PE HPI Details Patient presents for physical. He reports better controlled diabetes since started using Humalog with the well logging mud analysis captain sliding scale. He reports fasting glucose between 80-120 before meals between 120-150 patient denies hypoglycemia. He complains of dry cough tickle like in the throat since started taking benazepril. [facility] Medical History (Updated 09/24/23 @ 14:39 by Renetta Matute MD) Sleep apnea Hyperlipemia Overweight HTN (hypertension) DM type 2 (diabetes mellitus, type 2) Surgical History (Updated 09/24/23 @ 14:38 by Renetta Matute MD) Hx of colonoscopy History of shoulder surgery History of esophagogastroduodenoscopy (EGD) Family History Father No problems noted. Mother Substance use disorder Social History Housing: House Do you presently have visiting nurse or other home services: No Patient Tobacco Use Status: Never used Tobacco e-Cigarette/Vaping Use: Never Used Current occupational status: employed Cognitive needs: No Hearing needs: No Vision needs: Yes Questionnaire Thrive Questionnaire Date Thrive assessed: 06/04/23 FAITH-7 AMB Questionnaire FAITH-7 Date FAITH - 7 assessed: 06/04/23 Source: Developed by Drs. Abimael Dinh, Hedy Lockett, Damon Frank and colleagues, with an educational reggie from [employer] Review of Systems Const All systems reviewed & are unremarkable except as noted in HPI and below Reports no additional complaints Eyes Reports no additional complaints ENT Reports no additional complaints Card Reports no additional complaints Resp Reports no additional complaints GI Reports no additional complaints Reports no additional complaints Physical exam (Primary Care) Vital Signs: Last Vital Signs Pulse 92 09/24/23 13:12 BP 138/80 09/24/23 13:12 Pulse Ox 96 09/24/23 13:12 Oxygen Delivery Method Room Air 09/24/23 13:12 BMI result Body Mass Index 43.3 Tobacco/Smoking Status: Tobacco use Status Tobacco use date assessed 09/24/23 09/24/23 13:24 Patient Tobacco Use Status Never used Tobacco 09/24/23 13:24 e-Cigarette/Vaping Use Never Used 09/24/23 13:12 Thrive Assessment: Date of Thrive Assessment Date Thrive assessed 06/04/23 09/24/23 13:12 Const General: no acute distress HENMT Head: Yes normal to inspection Ears: hearing grossly normal bilaterally Face and sinus: Yes normal facial exam Eyes General: appearance normal, both eyes and all related structures Neck Neck: Yes no lymphadenopathy and Yes supple Resp Effort & Inspection: normal respiratory effort Auscultation: clear to auscultation bilaterally Cardio Rhythm: regular rhythm Heart sounds: S1 normal heart sound present and S2 normal heart sound present GI Inspection: Yes normal to inspection Palpation (GI): Soft to palpation Percussion: Yes normal to percussion Auscultation: normal bowel sounds Extrem General: Yes no clubbing, cyanosis or edema Assessment and Plan Assessment & Plan (1) Dysuria: Code(s): R30.0 - Dysuria Plan: For the episode of dysuria and urinary hesitancy obtain bladder ultrasound to rule out urinary retention (2) Urinary retention: Code(s): R33.9 - Retention of urine, unspecified (3) Fatigue: Code(s): R53.83 - Other fatigue Plan: Check testosterone and iron level (4) Sleep apnea: Comment: mild, no Cpap Code(s): G47.30 - Sleep apnea, unspecified (5) DM type 2 (diabetes mellitus, type 2): Code(s): E11.9 - Type 2 diabetes mellitus without complications Plan: A1c 7.4, ADA diet increase exercise weight loss discussed with the patient. Change Trulicity to Mounjaro start with a 2.5 mg for the 1st month then increase to 5 mg. Patient will continue metformin Tresiba and NovoLog according to sliding scale (6) HTN (hypertension): Comment: Benazepril caused cough Code(s): I10 - Essential (primary) hypertension Qualifiers: Hypertension type: unspecified Qualified Code(s): I10 - Essential (primary) hypertension Plan: Change amlodipine with benazepril to amlodipine with valsartan and continue Dyazide (7) Hyperlipemia: Code(s): E78.5 - Hyperlipidemia, unspecified Plan: Low-cholesterol diet increase physical activity and weight loss discussed with the patient, he declined statin (8) Annual physical exam: Code(s): Z00.00 - Encounter for general adult medical examination without abnormal findings Plan: Well-balanced diet regular physical activity discussed with the patient, return in 3 months with a fasting labs before (9) Hx of colonoscopy: Comment: 01.14.23 [facility] [place] Code(s): Z98.890 - Other specified postprocedural states Orders: Orders Testosterone, Free/Total Today R53.83 - Other fatigue IRON PROFILE Today R53.83 - Other fatigue TSH reflex Free T4 Today R53.83 - Other fatigue Hemoglobin A1c 3 Months E11.9 - Type 2 diabetes mellitus without complications, E78.5 - Hyperlipidemia, unspecified, G47.30 - Sleep apnea, unspecified, I10 - Essential (primary) hypertension Microalbumin, Random (w Creat) 3 Months E11.9 - Type 2 diabetes mellitus without complications, E78.5 - Hyperlipidemia, unspecified, G47.30 - Sleep apnea, unspecified, I10 - Essential (primary) hypertension US bladder Today R30.0 - Dysuria, R33.9 - Retention of urine, unspecified UA w Microscopic Today R30.0 - Dysuria, R33.9 - Retention of urine, unspecified US renal BI Today R30.0 - Dysuria, R33.9 - Retention of urine, unspecified Comprehensive [place]. Panel Fast 3 Months E11.9 - Type 2 diabetes mellitus without complications, E78.5 - Hyperlipidemia, unspecified, G47.30 - Sleep apnea, unspecified, I10 - Essential (primary) hypertension Lipid Panel 3 Months E11.9 - Type 2 diabetes mellitus without complications, E78.5 - Hyperlipidemia, unspecified, G47.30 - Sleep apnea, unspecified, I10 - Essential (primary) hypertension Complete Blood Count Auto Diff 3 Months E11.9 - Type 2 diabetes mellitus without complications, E78.5 - Hyperlipidemia, unspecified, G47.30 - Sleep apnea, unspecified, I10 - Essential (primary) hypertension PSA,Total (Free>4and<10) Today R30.0 - Dysuria, R33.9 - Retention of urine, unspecified Medications: New tirzepatide (Mounjaro) 2.5 mg (0.1667 mL) subcut QWEEK 4 weeks 0.667 mL 0RF amlodipine-valsartan 10-320 mg 1 tab PO DAILY 90 tabs 3RF tirzepatide (Mounjaro) 2.5 mg weekly for 4 weeks, then 5 mg weekly 2.5 mg (0.1667 mL) subcut QWEEK 2 mL 2RF triamcinolone acetonide 0.025% 1 appl topical DAILY 60 mL 3RF Discontinued dulaglutide (Trulicity) Discontinued Reason: Doctor's Order 1.5 mg (0.5 mL) subcut QWEEK 6 mL 3RF amlodipine-benazepril 10-40 mg Discontinued Reason: Doctor's Order 1 cap PO DAILY 90 caps 1RF sulfamethoxazole-trimethoprim 800-160 mg (Bactrim DS) Discontinued Reason: Doctor's Order 1 tab PO BID 7 days 14 tabs 0RF Coding Level of Care Code Est Pt Prev Care 40-64y(65810) Diagnoses Dysuria R30.0 Urinary retention R33.9 Fatigue R53.83 Sleep apnea G47.30 DM type 2 (diabetes mellitus, type 2) E11.9 Hypertension, unspecified type I10 Hypertension type: unspecified Hyperlipemia E78.5 Annual physical exam Z00.00 Hx of colonoscopy Z98.890
== END 2023-09-24 14:40 | disposition home or self-care (01) ==
PROVIDERS: PCP Internal Medicine; Visit Provider Internal Medicine
DX: Z00.00 Encounter for general adult medical examination without abnormal findings (principal); E11.9 Type 2 diabetes mellitus without complications; R30.0 Dysuria; R33.9 Retention of urine, unspecified; R53.83 Other fatigue; G47.30 Sleep apnea, unspecified; I10 Essential (primary) hypertension; E78.5 Hyperlipidemia, unspecified; Z98.890 Other specified postprocedural states
CPT/HCPCS: 99396

== ENCOUNTER 2023-09-24 14:31 | Outpatient (REF) | payer OTHER, SELFPAY ==
[2023-09-24 17:15] LABS: Appearance Urine Turbid; Color Urine Dark Yellow; Glucose Urine UA Negative (Negative); Leukocyte Esterase Urine Negative (Negative); Nitrite Urine Negative (Negative); PH 5.5 (5.0-9.0); Specific Gravity - Urine >= 1.030 (1.005-1.025); Urine Blood Negative (Negative); Urine Ketones Trace mg/dL (Negative); Urine Protein Trace mg/dL (Neg-Trace)
[2023-09-24 17:21] LABS: Bacteria Urine None Seen (None Seen); Hyaline Casts Urine 0-2 /LPF (0-2); RBC Urine 0-2 /HPF (0-2); Squamous Epithelial Cell Urine 0-2 /HPF (0-2)
[2023-09-24 17:53] LABS: Iron 109 mcg/dL (45-160); Percent Iron Saturation 42 % (15-50); Total Iron Binding Capacity 260 mcg/dL (228-428); Unsaturated Iron Binding 151 ug/dL
[2023-09-24 18:10] LABS: PSA,Total (Free>4and<10) 2.67 ng/mL (0.00-4.00)
[2023-09-24 18:12] LABS: TSH reflex Free T4 0.94 uIU/mL (0.32-4.0)
[2023-10-01 11:08] LABS: Testosterone, Free 79.9 pg/mL (35.0-155.0); Testosterone, Total 470 ng/dL (250-1100)
== END 2023-09-24 14:32 | disposition home or self-care (01) ==
LOC: HO.HMGCLDS 14:31
PROVIDERS: PCP Internal Medicine; Visit Provider Internal Medicine
DX: Z12.5 Encounter for screening for malignant neoplasm of prostate (principal); R30.0 Dysuria; R33.9 Retention of urine, unspecified; R53.83 Other fatigue
CPT/HCPCS: 36415; 81001; 83540; 84153; 84402; 84403; 84443

== ENCOUNTER 2023-10-02 12:53 | Outpatient (REF) | payer OTHER, SELFPAY ==
--- NOTE | ~2023-10-02 | US_ITS ---
EXAMINATION: US RETROPERITONEAL COMPLETE (RENAL) CLINICAL INFORMATION: Retention of urine, unspecified. COMPARISON: None available. TECHNIQUE: Real-time imaging of the kidneys and bladder. FINDINGS: RIGHT KIDNEY: 12.3 x 6.0 x 6.0 cm (SAG x AP x TRV). The kidney is normal in size, contour, and echogenicity. Renal cortical thickness is normal. No calculi or focal parenchymal lesions. No hydronephrosis. LEFT KIDNEY: 12.0 x 6.0 x 5.3 cm (SAG x AP x TRV). The kidney is normal in size, contour, and echogenicity. Renal cortical thickness is normal. No calculi or focal parenchymal lesions. No hydronephrosis. BLADDER: Partially distended. Bilateral ureteral jets are demonstrated. Prevoid bladder volume is 105 mL. Postvoid bladder volume is 10 mL. ADDITIONAL FINDINGS: Prostate mildly enlarged at 28 mL with a large area of central calcification noted. US/US retroperitoneal comp IMPRESSION: 1. Normal-appearing kidneys. 2. Mild BPH with 28 mL prostate.
== END 2023-10-02 12:54 | disposition home or self-care (01) ==
LOC: HO.HMGCX 12:53
PROVIDERS: PCP Internal Medicine; Visit Provider Internal Medicine
DX: R33.9 Retention of urine, unspecified (principal); R30.0 Dysuria
CPT/HCPCS: 76770

== ENCOUNTER 2023-11-18 14:24 | Outpatient (AMB) | payer OTHER, SELFPAY ==
[2023-11-18 14:25] VITALS: BP 136/80; PULSE 81; O2SAT 96; BMI 43.6
--- NOTE | 2023-11-18 14:25 | A.OFFPC_ITS ---
Vital Signs 11/18/23 14:25 Height 5 ft 4 in Weight 254 lb BMI 43.6 BP 136/80 Blood Pressure Location Lt brachial Position Sitting Pulse 81 Pulse Source Pulse Oximeter Pulse Oximetry (%) 96 Oxygen Delivery Method Room Air Intake Visit Reasons: Follow up fill out FMLA Allergies benazepril Adverse Reaction (Intermediate, Verified 11/18/23 14:27) Cough Tobacco use date assessed: 09/24/23 Dental Screening Dental Screen Date: 09/24/23 HPI Follow up fill out FMLA HPI Details Patient presents for the follow-up on hypertension and type 2 diabetes better controlled on current medications. Patient reports occasionally low fasting glucose readings to 70s. He had an episode of symptomatic hypoglycemia [facility] Medical History Sleep apnea Hyperlipemia Overweight HTN (hypertension) DM type 2 (diabetes mellitus, type 2) Surgical History Hx of colonoscopy History of shoulder surgery History of esophagogastroduodenoscopy (EGD) Family History Father No problems noted. Mother Substance use disorder Social History Housing: House Do you presently have visiting nurse or other home services: No Patient Tobacco Use Status: Never used Tobacco e-Cigarette/Vaping Use: Never Used Current occupational status: employed Cognitive needs: No Hearing needs: No Vision needs: Yes Questionnaire PHQ-9 Over the last 2 weeks, how often have you been bothered by any of the following problems? 1. Little interest or pleasure in doing things: not at all 2. Feeling down, depressed, or hopeless: not at all 3. Trouble falling or staying asleep, or sleeping too much: not at all 4. Feeling tired or having little energy: not at all 5. Poor appetite or overeating: not at all 6. Feeling bad about yourself - or that you are a failure or have let yourself or your family down: not at all 7. Trouble concentrating on things, such as reading the newspaper or watching television: not at all 8. Moving or speaking so slowly that other people could have noticed. Or the opposite - being so fidgety or restless that you have been moving around a lot more than usual: not at all 9. Thoughts that you would be better off or of hurting yourself in some way: not at all Total score: 0 Depression Screening Interpretation: Negative Depression Screening Done: Yes Source: Developed by Drs. Abimael Dinh, Damon Goldstein and colleagues, with an educational reggie from [email or web address]. Thrive Questionnaire Date Thrive assessed: 11/18/23 I am a: Patient What is your living situation today?: I have a steady place to live Within the past 12 months, did the food you bought not last and you didn't have the money to get more?: Never true Within the past 12 months, did you worry whether your food would run out before you got money to buy more?: Never true Do you have trouble paying for medicines?: No Do you have trouble getting transportation to medical appointments?: No Do you have trouble paying your heating and electricity bill?: No Do you have trouble taking care of your child, family member or friend?: No Do you have trouble with day-to-day activities such as bathing, preparing meals, shopping, managing finances, etc.?: No Are you currently unemployed and looking for a job?: No Are you interested in more education?: No Please select the resources that you would like help with: None THRIVE Score: 0 FAITH-7 AMB Questionnaire FAITH-7 Date FAITH - 7 assessed: 11/18/23 Feeling nervous, anxious, or on edge: 0 = Not at all Not being able to stop or control worryin = Not at all Worrying too much about different things: 0 = Not at all Trouble relaxin = Not at all Being so restless that it is hard to sit still: 0 = Not at all Becoming easily annoyed or irritable: 0 = Not at all Feeling afraid as if something awful might happen: 0 = Not at all Total FAITH-7 score (0-4 normal; 5-9 mild; 10-14 moderate; 15-21 severe): 0 Source: Developed by Drs. Abimael Dinh, Damon Goldstein and colleagues, with an educational reggie from [email or web address]. Review of Systems Card Reports no additional complaints Resp Reports no additional complaints GI Reports no additional complaints Reports no additional complaints Physical exam (Primary Care) Vital Signs: Last Vital Signs Pulse 81 11/18/23 14:25 BP 136/80 11/18/23 14:25 Pulse Ox 96 11/18/23 14:25 Oxygen Delivery Method Room Air 11/18/23 14:25 BMI result Body Mass Index 43.6 Tobacco/Smoking Status: Tobacco use Status Tobacco use date assessed 09/24/23 11/18/23 14:29 Patient Tobacco Use Status Never used Tobacco 11/18/23 14:29 e-Cigarette/Vaping Use Never Used 11/18/23 14:29 PHQ-9: PHQ-9 Score PHQ-9: Total score 0 11/18/23 14:29 Depression Screening Interpretation: Negative Thrive Assessment: Date of Thrive Assessment Date Thrive assessed 11/18/23 11/18/23 14:29 Const General: no acute distress Resp Effort & Inspection: normal respiratory effort Auscultation: clear to auscultation bilaterally Cardio Rhythm: regular rhythm Heart sounds: S1 normal heart sound present and S2 normal heart sound present Assessment and Plan Assessment & Plan (1) HTN (hypertension): Comment: Benazepril caused cough Code(s): I10 - Essential (primary) hypertension Qualifiers: Hypertension type: unspecified Qualified Code(s): I10 - Essential (primary) hypertension Plan: Continue current medications (2) DM type 2 (diabetes mellitus, type 2): Code(s): E11.9 - Type 2 diabetes mellitus without complications Plan: ADA diet regular physical activity discussed with the patient decrease Tresiba to 26 units and continue the rest of the medications. Follow-up next month with a fasting labs before Coding Level of Care Code Est Pt Level 3 (44083) Diagnoses Hypertension, unspecified type I10 Hypertension type: unspecified DM type 2 (diabetes mellitus, type 2) E11.9
== END 2023-11-18 14:58 | disposition home or self-care (01) ==
LOC: HO.HMGC 14:24
PROVIDERS: PCP Internal Medicine; Visit Provider Internal Medicine
DX: I10 Essential (primary) hypertension (principal); E11.9 Type 2 diabetes mellitus without complications
CPT/HCPCS: 99213

== ENCOUNTER 2023-11-29 10:01 | Outpatient (REF) | payer OTHER, SELFPAY ==
[2023-11-29 11:05] LABS: MANUAL DIFF FLAG NO
[2023-11-29 11:17] LABS: Basophils Percent Auto 0.5 % (0-2); Eosinophils Absolute Auto 0.2 X10*3/uL (0.0-0.4); Eosinophils Percent Auto 2.3 % (0-4); Hematocrit 41.6 % (42.0-52.0); Hemoglobin 13.8 g/dl (14.0-18.0); Imm Gran Abs Auto 0.05 X10*3/uL (0.00-0.03); Imm Gran Pct Auto 0.6 % (0.0-0.4); Lymphocytes Absolute Auto 1.9 X10*3/uL (1.2-4.9); Lymphocytes Percent Auto 23.8 % (20-40); Mean Corpuscular HGB Conc 33.2 g/dl (31.0-36.0); Mean Corpuscular Hemoglobin 27.6 pg (27.0-33.0); Mean Corpuscular Volume 83.2 fL (80.0-98.0); Mean Platelet Volume 10.1 fL (9.4-12.4); Monocytes Absolute Auto 0.6 X10*3/uL (0.1-1.2); Monocytes Percent Auto 7.5 % (2-11); Neutrophils Absolute Auto 5.2 x10*3/uL (2.0-8.3); Neutrophils Percent Auto 65.3 % (45-73); Platelet Count 325 X10*3/uL (160-400); Red Cell Distribution Width 12.5 % (11.0-16.0); White Blood Count 7.9 X10*3/uL (4.8-10.8)
[2023-11-29 11:34] LABS: Estimated Average Glucose 120 mg/dL; Hemoglobin A1c % 5.8 % (<6.0)
[2023-11-29 11:38] LABS: Microalbum/Creatinine Ratio Ur 20.7 ug/mg cr (<30)
[2023-11-29 12:01] LABS: Alanine Aminotransferase 46 U/L (0-40); Albumin Level 4.3 g/dL (3.5-5.0); Alkaline Phosphatase 50 U/L (39-117); Anion Gap 12 (12-20); Aspartate Amino Transferase 30 U/L (5-37); Bilirubin Total 0.4 mg/dL (0.0-1.0); Blood Urea Nitrogen 14 mg/dL (9-16); Calcium 9.2 mg/dL (8.4-10.2); Carbon Dioxide 26 mmol/L (22-29); Chloride 106 mmol/L (96-108); Cholesterol 177 mg/dL (<200); Estimated Glomerular Filt Rate > 60; Glucose Fasting 107 mg/dL (60-99); HDL Cholesterol 41 mg/dL (>40); LDL Cholesterol Calculated 121 mg/dL (<100); Potassium 4.1 mmol/L (3.3-5.1); Sodium 140 mmol/L (135-145); Total Protein 7.3 g/dL (6.5-8.0); Triglycerides 76 mg/dL (<150)
== END 2023-11-29 10:02 | disposition home or self-care (01) ==
LOC: HO.HMGCLDS 10:01
PROVIDERS: PCP Internal Medicine; Visit Provider Internal Medicine
DX: E11.9 Type 2 diabetes mellitus without complications (principal); G47.30 Sleep apnea, unspecified; E78.5 Hyperlipidemia, unspecified; I10 Essential (primary) hypertension
CPT/HCPCS: 36415; 80053; 80061; 82043; 82570; 83036; 85025

== ENCOUNTER 2024-03-01 13:44 | Outpatient (AMB) | payer OTHER, SELFPAY ==
[2024-03-01 13:47] VITALS: BP 139/88; PULSE 84; O2SAT 94; BMI 44.0
--- NOTE | 2024-03-01 13:47 | A.OFFPC_ITS ---
Vital Signs 03/01/24 13:47 Height 5 ft 4 in Weight 256 lb 8 oz BMI 44.0 BP 139/88 Blood Pressure Location Rt brachial Position Sitting Pulse 84 Pulse Source Pulse Oximeter Pulse Oximetry (%) 94 Oxygen Delivery Method Room Air Intake Visit Reasons: diabetes followup Intake Note: Patient is here today for follow up on diabetes Allergies benazepril Adverse Reaction (Intermediate, Verified 03/01/24 13:47) Cough Medication List - Last Reconciled 03/01/24 by Renetta Matute MD albuterol sulfate 1.25 mg (3 mL) inhalation Q4-6H PRN amlodipine-valsartan 10-320 mg 1 tab PO DAILY flash glucose scanning reader (AddeparStyle Ceci 14 Day [place]) As directed flash glucose sensor (AddeparStyle Ceci 14 Day Sensor kit) monitor blood sugar, change every 14 days Mounjaro (tirzepatide) 5 mg (0.5 mL) subcut QWEEK NS Novolog FlexPen U-100 Insulin (insulin aspart U-100) 6 units before meal if glucose is 90-160, 12 units if glucose >160 subcutaneously use as directed; MDD 36 units NS tirzepatide (Mounjaro) 2.5 mg (0.1667 mL) subcut QWEEK Tresiba FlexTouch U-100 (insulin degludec) 30 units (0.3 mL) subcut DAILY NS triamterene-hydrochlorothiazid 37.5-25 mg 1 tab PO DAILY Tobacco use date assessed: 03/01/24 Dental Screening Dental Screen Date: 03/01/24 Did you have a dental visit in the last 12 months?: Yes Did you have a dental problem in the last 6 months where you did not have access to dental care?: No Was dental information given to patient?: Patient has dentist HPI diabetes followup HPI Details Patient presents for the follow-up of hypertension and type 2 diabetes. He reports improved blood glucose readings since starting Mounjaro down to low 90s in the morning. He denies hypoglycemia episodes. He complains of sinus congestion and pressure chronically for few weeks. Patient denies nasal discharge fever chills. [facility] Medical History Sleep apnea Hyperlipemia Overweight HTN (hypertension) DM type 2 (diabetes mellitus, type 2) Surgical History Hx of colonoscopy History of shoulder surgery History of esophagogastroduodenoscopy (EGD) Family History Father No problems noted. Mother Substance use disorder Social History Housing: House Do you presently have visiting nurse or other home services: No Patient Tobacco Use Status: Never used Tobacco e-Cigarette/Vaping Use: Never Used service: No Current occupational status: employed Cognitive needs: No Hearing needs: No Vision needs: Yes Questionnaire PHQ-9 Over the last 2 weeks, how often have you been bothered by any of the following problems? 1. Little interest or pleasure in doing things: several days 2. Feeling down, depressed, or hopeless: not at all 3. Trouble falling or staying asleep, or sleeping too much: not at all 4. Feeling tired or having little energy: more than half the days 5. Poor appetite or overeating: not at all 6. Feeling bad about yourself - or that you are a failure or have let yourself or your family down: not at all 7. Trouble concentrating on things, such as reading the newspaper or watching television: not at all 8. Moving or speaking so slowly that other people could have noticed. Or the opposite - being so fidgety or restless that you have been moving around a lot more than usual: not at all 9. Thoughts that you would be better off or of hurting yourself in some way: not at all Total score: 3 Depression Screening Interpretation: Negative Depression Screening Done: Yes 31230 - PHQ-9 Billing: Yes Source: Developed by Drs. Abimael Dinh, Hedy Lockett, Damon Frank and colleagues, with an educational reggie from [employer]. Thrive Questionnaire Date Thrive assessed: 03/01/24 I am a: Patient What is your living situation today?: I have a steady place to live Within the past 12 months, did the food you bought not last and you didn't have the money to get more?: Never true Within the past 12 months, did you worry whether your food would run out before you got money to buy more?: Never true Do you have trouble paying for medicines?: No Do you have trouble getting transportation to medical appointments?: No Do you have trouble paying your heating and electricity bill?: No Do you have trouble taking care of your child, family member or friend?: No Do you have trouble with day-to-day activities such as bathing, preparing meals, shopping, managing finances, etc.?: No Are you currently unemployed and looking for a job?: No Are you interested in more education?: No Please select the resources that you would like help with: Housing/Nursing Home Currently or been in a relationship where the following occur: No concerns reported THRIVE Score: 0 AUDIT C Alcohol Use Questionnaire (AUDIT-C) 1. How often do you have a drink containing alcohol?: Never 3. How often do you have six or more drinks on one occasion?: Never Total Score: 0 Score Reviewed/Action Taken: Yes FAITH-7 AMB Questionnaire FAITH-7 Date FAITH - 7 assessed: 03/01/24 Feeling nervous, anxious, or on edge: 0 = Not at all Not being able to stop or control worryin = Not at all Worrying too much about different things: 0 = Not at all Trouble relaxin = Not at all Being so restless that it is hard to sit still: 0 = Not at all Becoming easily annoyed or irritable: 0 = Not at all Feeling afraid as if something awful might happen: 0 = Not at all Total FAITH-7 score (0-4 normal; 5-9 mild; 10-14 moderate; 15-21 severe): 0 Source: Developed by Drs. Abimael Dinh, Hedy Lockett, Damon Frank and colleagues, with an educational reggie from [employer]. FAITH-7 Assessment Billing FAITH-7 Assessment Tool: FAITH-7 Assessment 53833 Review of Systems Const All systems reviewed & are unremarkable except as noted in HPI and below Eyes Reports no additional complaints ENT Reports no additional complaints Card Reports no additional complaints Resp Reports no additional complaints GI Reports no additional complaints Reports no additional complaints Physical exam (Primary Care) Vital Signs: Last Vital Signs Pulse 84 03/01/24 13:47 Pulse Ox 94 03/01/24 13:47 Oxygen Delivery Method Room Air 03/01/24 13:47 BMI result Body Mass Index 44.0 Tobacco/Smoking Status: Tobacco use Status Tobacco use date assessed 03/01/24 03/01/24 13:50 Patient Tobacco Use Status Never used Tobacco 03/01/24 13:50 e-Cigarette/Vaping Use Never Used 03/01/24 13:50 PHQ-9: PHQ-9 Score PHQ-9: Total score 3 03/01/24 14:01 Depression Screening Interpretation: Negative Thrive Assessment: Date of Thrive Assessment Date Thrive assessed 03/01/24 03/01/24 13:50 Currently or been in a relationship where the following occur: No concerns reported Const General: no acute distress HENMT Head: Yes normal to inspection Face and sinus: Yes normal facial exam, Yes normal transillumination of sinuses and Yes sinus tenderness Mouth: Normal oral and palatal mucosa present Throat: Yes posterior oropharynx normal Eyes General: appearance normal, both eyes and all related structures Neck Neck: Yes no lymphadenopathy and Yes supple Resp Effort & Inspection: normal respiratory effort Auscultation: clear to auscultation bilaterally Cardio Rhythm: regular rhythm Heart sounds: S1 normal heart sound present and S2 normal heart sound present Assessment and Plan Assessment & Plan (1) Sinusitis: Code(s): J32.9 - Chronic sinusitis, unspecified Plan: Of chronic sinus pain x-ray will be obtained patient will be referred to ENT. He was advised to use Flonase nasal spray take Claritin (2) DM type 2 (diabetes mellitus, type 2): Code(s): E11.9 - Type 2 diabetes mellitus without complications Plan: A1c was 5.8 in November. ADA diet increase physical activity weight loss discussed with the patient. Mounjaro will be increased to 7.5 mg and patient was advised to decrease Tresiba to 20 units and continue Humalog with a sliding scale. Follow-up in 3 months with a fasting labs before (3) Hyperlipemia: Code(s): E78.5 - Hyperlipidemia, unspecified (4) HTN (hypertension): Comment: Benazepril caused cough Code(s): I10 - Essential (primary) hypertension Qualifiers: Hypertension type: unspecified Qualified Code(s): I10 - Essential (primary) hypertension Plan: Restart blood pressure medications Orders: Orders XR sinus bolden view Today J32.9 - Chronic sinusitis, unspecified Complete Blood Count Auto Diff 3 Months E11.9 - Type 2 diabetes mellitus without complications, E78.5 - Hyperlipidemia, unspecified, I10 - Essential (primary) hypertension Hemoglobin A1c 3 Months E11.9 - Type 2 diabetes mellitus without complications, E78.5 - Hyperlipidemia, unspecified, I10 - Essential (primary) hypertension Comprehensive [place]. Panel Fast 3 Months E11.9 - Type 2 diabetes mellitus without complications, E78.5 - Hyperlipidemia, unspecified, I10 - Essential (primary) hypertension Lipid Panel 3 Months E11.9 - Type 2 diabetes mellitus without complications, E78.5 - Hyperlipidemia, unspecified, I10 - Essential (primary) hypertension Microalbumin, Random (w Creat) 3 Months E11.9 - Type 2 diabetes mellitus without complications, E78.5 - Hyperlipidemia, unspecified, I10 - Essential (primary) hypertension Referrals Ear/Nose/Throat Referral J32.9 - Chronic sinusitis, unspecified Medications: New Mounjaro (tirzepatide) 7.5 mg (0.5 mL) subcut QWEEK 6 mL 2RF NS Refilled amlodipine-valsartan 10-320 mg 1 tab PO DAILY 90 tabs 3RF triamterene-hydrochlorothiazid 37.5-25 mg 1 tab PO DAILY 90 tabs 3RF Discontinued tirzepatide (Mounjaro) 2.5 mg weekly for 4 weeks, then 5 mg weekly Discontinued Reason: Doctor's Order 2.5 mg (0.1667 mL) subcut QWEEK 2 mL 2RF Mounjaro (tirzepatide) Discontinued Reason: Doctor's Order 5 mg (0.5 mL) subcut QWEEK 6 mL 1RF NS Coding Level of Care Code Est Pt Level 4 (98624) Complex EM visit Add On G2211 Diagnoses Sinusitis J32.9 DM type 2 (diabetes mellitus, type 2) E11.9 Hyperlipemia E78.5 Hypertension, unspecified type I10 Hypertension type: unspecified Additional Codes FAITH-7 Assessment Billing - FAITH-7 Assessment Tool: FAITH-7 Assessment 37235 ([id number])
== END 2024-03-01 14:41 | disposition home or self-care (01) ==
PROVIDERS: PCP Internal Medicine; Visit Provider Internal Medicine
DX: J32.9 Chronic sinusitis, unspecified (principal); E11.69 Type 2 diabetes mellitus with other specified complication; E78.5 Hyperlipidemia, unspecified; I10 Essential (primary) hypertension
CPT/HCPCS: 99214

== ENCOUNTER 2024-06-30 12:21 | Outpatient (REF) | payer OTHER, SELFPAY ==
[2024-06-30 16:08] LABS: MANUAL DIFF FLAG NO
[2024-06-30 16:13] LABS: Basophils Percent Auto 0.5 % (0-2); Eosinophils Absolute Auto 0.2 X10*3/uL (0.0-0.4); Eosinophils Percent Auto 2.1 % (0-4); Hematocrit 41.7 % (42.0-52.0); Hemoglobin 13.6 g/dl (14.0-18.0); Imm Gran Abs Auto 0.03 X10*3/uL (0.00-0.03); Imm Gran Pct Auto 0.3 % (0.0-0.4); Lymphocytes Absolute Auto 1.8 X10*3/uL (1.2-4.9); Lymphocytes Percent Auto 21.2 % (20-40); Mean Corpuscular HGB Conc 32.6 g/dl (31.0-36.0); Mean Corpuscular Hemoglobin 27.5 pg (27.0-33.0); Mean Corpuscular Volume 84.2 fL (80.0-98.0); Mean Platelet Volume 10.5 fL (9.4-12.4); Monocytes Absolute Auto 0.7 X10*3/uL (0.1-1.2); Monocytes Percent Auto 8.3 % (2-11); Neutrophils Absolute Auto 5.8 x10*3/uL (2.0-8.3); Neutrophils Percent Auto 67.6 % (45-73); Platelet Count 315 X10*3/uL (160-400); Red Blood Count 4.95 X10*6/uL (4.60-5.80); White Blood Count 8.6 X10*3/uL (4.8-10.8)
[2024-06-30 16:28] LABS: Estimated Average Glucose 117 mg/dL; Hemoglobin A1c % 5.7 % (<6.0); Total Hemoglobin (HGBA1C) 3453.7505 umol/L
[2024-06-30 16:30] LABS: Alanine Aminotransferase 23 U/L (0-40); Albumin Level 4.4 g/dL (3.5-5.0); Alkaline Phosphatase 52 U/L (39-117); Anion Gap 11 (12-20); Aspartate Amino Transferase 25 U/L (5-37); Bilirubin Total 0.7 mg/dL (0.0-1.0); Blood Urea Nitrogen 17 mg/dL (9-16); Calcium 9.3 mg/dL (8.4-10.2); Carbon Dioxide 28 mmol/L (22-29); Chloride 105 mmol/L (96-108); Cholesterol 212 mg/dL (<200); Estimated Glomerular Filt Rate > 60; Glucose Fasting 98 mg/dL (60-99); HDL Cholesterol 48 mg/dL (>40); LDL Cholesterol Calculated 150 mg/dL (<100); Potassium 4.1 mmol/L (3.3-5.1); Sodium 140 mmol/L (135-145); Total Protein 7.3 g/dL (6.5-8.0); Triglycerides 70 mg/dL (<150)
[2024-06-30 17:25] LABS: Creatinine Urine 355.24 mg/dL; Microalbum/Creatinine Ratio Ur 13.5 ug/mg cr (<30)
--- OUTSIDE RECORDS SUMMARY | 2024-07-06 18:44 | XMS_ITS | Continuity of Care Document ---
Author Organization [facility] [address] [place] [address] Phone [phone] Care Team Providers Care Fire Alarm Installer Name Role Phone Renetta Matute Care Team Information Bingo Floater + [phone] Problems Active Problems Provider Date Type 2 diabetes mellitus Manolo Saunders M.D. O nset: 11/29/2022 Hand joint pain Manolo Saunders M.D. Onset: Essential hypertension Manolo Saunders M.D. Ons et: 02/12/2023 Insulin treated type 2 diabetes mellitus Manolo bustillos M.D. Onset: 02/12/2023 Social History Type Date Description Comments Sex Unknown Tobacco Use Start: Unknown Never Smoked Cigarettes Smoking Status Reviewed: 02/12/23 Never Smoked Cigaret rachel ETOH Use Rarely consumes alcohol Allergies and adverse reactions Description No Known Drug Allergies Medications Active Medications SIG Qnty Indications Order ing Provider Date Amlodipine [id number] Tablets 1 by mouth every day 90tabs Manolo Saunders M.D. 02/12/2023 [id number] Tablets one as needed 5tabs Ba rafiq Saunders M.D. 02/12/2023 Tresiba [id number]/ML Solution Pen-Inject Inject 30 Units Subcutaneously Once Daily 15ml E11.9 Manolo Saunders M.D. Z79.4 Trulicity1.5mg/0.5ML Solutio n Pen-Inject Inject 1.5MG (0.5ML) Subcutaneouly Every Week Renetta Matute 000 Vudliuxifn13ct Tablets Take 1 Tablet By Mouth Once Daily Renetta Matute Freestyle Ceci 2/Sensor/Fla sh Glucose Monitoring [id number] Misc Change Every 14 Days Juju Renetta Vital Signs Date Vital Result Comment 02/12/2023 10:21am Height 64 inches 5'4 Weight 258.50 lb BMI (Body Mass Index) 44.4 kg/m2 Results Test Acquired Date Facility Test Result H/L Range N [place]te Laboratory test finding 02/12/2023 [facility] Sedimentation Rate,Automated 19 MM/HR High (0-15) Rheumatoid Factor <10.0 IU/mL (<14) Laboratory test finding 02/12/2023 Inhouse Hemoglobin A1c 6.9% Glucose Fingerstick 184 Procedures Date Code Description Status 04/16/2023 NSHOWOFF No Show Office Visit Complet ed Medical Devices Description No Information Available Encounters Type Date Location Provider Dx Diagnosis Office Visit 02/12/2023 10:30a Main Office Manolo Saunders M.D. E11.9 Type 2 diabetes mellitus without complications Z79.4 rodent exterminator (current) use of insulin I10 Essential (primary) hypertension M25.549 Pain in joints of un specified hand M19.90 Unspecified osteoart hritis, unspecified site Assessments Date Code Description Provider 02/12/2023 E11.9 Type 2 diabetes mellitus without complications Manolo Saunders M.D. 02/12/2023 Z79.4 rodent exterminator (current) use of i nsulin Manolo Saunders M.D. 02/12/2023 I10 Essential (primary) hyperten mio Manolo Saunders M.D. 02/12/2023 M25.549 Hand joint pain Manolo mast M.D. 02/12/2023 M19.90 Unspecified osteoarthritis, unspecified site Manolo Saunders M.D. Plan of Treatment 02/12/2023 - Manolo Saunders M.D.* E11.9 Type 2 diabetes mellitus without complications * Z79.4 alf (current) use of insulin * I10 Essential (primary) hypertension * M25.549 Hand joint pain * M19.90 Unspecified osteoarthritis, unspecified site * Functional Status Description No Information Available Mental Status Description No Information Available Referrals Description No Information Available
== END 2024-06-30 12:22 | disposition home or self-care (01) ==
LOC: HO.HMGCLDS 12:21
PROVIDERS: PCP Internal Medicine; Visit Provider Internal Medicine
DX: E11.9 Type 2 diabetes mellitus without complications (principal); E78.5 Hyperlipidemia, unspecified; I10 Essential (primary) hypertension
CPT/HCPCS: 36415; 80053; 80061; 82043; 82570; 83036; 85025

== ENCOUNTER 2024-08-05 12:56 | Outpatient (AMB) | payer OTHER, SELFPAY ==
[2024-08-05 13:01] VITALS: BP 134/80; PULSE 89; O2SAT 96; BMI 42.0
--- NOTE | 2024-08-05 13:01 | MHC.PC.OV ---
Vital Signs 08/05/24 13:01 Height 5 ft 4 in Weight 245 lb BMI 42.0 BP 134/80 Blood Pressure Location Lt brachial Position Sitting Pulse 89 Pulse Source Pulse Oximeter Pulse Oximetry (%) 96 Oxygen Delivery Method Room Air Intake Visit Reasons: 4 month f/u Intake Note: Pt is here today for 4 months follow up visit. Pt states that he has been having chest congestion for last couple days. Allergies benazepril Adverse Reaction (Intermediate, Verified 08/05/24 13:08) Cough Medication List - Last Reconciled 08/05/24 by Renetta Matute MD albuterol sulfate 1.25 mg (3 mL) inhalation Q4-6H PRN amlodipine-valsartan 10-320 mg 1 tab PO DAILY bisoprolol fumarate 5 mg PO DAILY flash glucose scanning reader ([employer] Ceci 14 Day [place]) As directed flash glucose sensor ([employer] Ceci 14 Day Sensor kit) monitor blood sugar, change every 14 days labetalol 100 mg PO DAILY Mounjaro (tirzepatide) 10 mg (0.5 mL) subcut QWEEK NS Novolog FlexPen U-100 Insulin (insulin aspart U-100) 6 units before meal if glucose is 90-160, 12 units if glucose >160 subcutaneously use as directed; MDD 36 units NS rosuvastatin (Crestor) 20 mg PO DAILY Tresiba FlexTouch U-100 (insulin degludec) 30 units (0.3 mL) subcut DAILY NS triamterene-hydrochlorothiazid 37.5-25 mg 1 tab PO DAILY Tobacco use date assessed: 08/05/24 Dental Screening Dental Screen Date: 08/05/24 Did you have a dental visit in the last 12 months?: Yes Did you have a dental problem in the last 6 months where you did not have access to dental care?: No Was dental information given to patient?: Patient has dentist HPI 4 month f/u HPI Details Pt c/o congestion, sinus pressure, cough, green sputum for 1 week. HTN, hyperlipid, DM 2, are stable on current medications [facility] Medical History Sleep apnea Hyperlipemia Overweight HTN (hypertension) DM type 2 (diabetes mellitus, type 2) Surgical History Hx of colonoscopy History of shoulder surgery History of esophagogastroduodenoscopy (EGD) Family History Father No problems noted. Mother Substance use disorder Social History Housing: House Do you presently have visiting nurse or other home services: No Patient Tobacco Use Status: Never used Tobacco e-Cigarette/Vaping Use: Never Used service: No Current occupational status: employed Cognitive needs: No Hearing needs: No Vision needs: Yes Questionnaire PHQ-9 Over the last 2 weeks, how often have you been bothered by any of the following problems? 1. Little interest or pleasure in doing things: several days 2. Feeling down, depressed, or hopeless: not at all 3. Trouble falling or staying asleep, or sleeping too much: not at all 4. Feeling tired or having little energy: more than half the days 5. Poor appetite or overeating: not at all 6. Feeling bad about yourself - or that you are a failure or have let yourself or your family down: not at all 7. Trouble concentrating on things, such as reading the newspaper or watching television: not at all 8. Moving or speaking so slowly that other people could have noticed. Or the opposite - being so fidgety or restless that you have been moving around a lot more than usual: not at all 9. Thoughts that you would be better off or of hurting yourself in some way: not at all Total score: 3 Depression Screening Interpretation: Negative Depression Screening Done: Yes 34660 - PHQ-9 Billing: Yes Source: Developed by Drs. Abimael Dinh, Hedy Lockett, Damon Frank and colleagues, with an educational reggie from [employer]. Thrive Questionnaire Date Thrive assessed: 03/01/24 I am a: Patient What is your living situation today?: I have a steady place to live Within the past 12 months, did the food you bought not last and you didn't have the money to get more?: Never true Within the past 12 months, did you worry whether your food would run out before you got money to buy more?: Never true Do you have trouble paying for medicines?: No Do you have trouble getting transportation to medical appointments?: No Do you have trouble paying your heating and electricity bill?: No Do you have trouble taking care of your child, family member or friend?: No Do you have trouble with day-to-day activities such as bathing, preparing meals, shopping, managing finances, etc.?: No Are you currently unemployed and looking for a job?: No Are you interested in more education?: No Please select the resources that you would like help with: None Currently or been in a relationship where the following occur: No concerns reported THRIVE Score: 0 AUDIT C Alcohol Use Questionnaire (AUDIT-C) 1. How often do you have a drink containing alcohol?: Never 3. How often do you have six or more drinks on one occasion?: Never Total Score: 0 FAITH-7 AMB Questionnaire FAITH-7 Date FAITH - 7 assessed: 03/01/24 Source: Developed by Drs. Abimael Dinh, Hedy Lockett, Damon Frank and colleagues, with an educational reggie from [employer]. Review of Systems Const All systems reviewed & are unremarkable except as noted in HPI and below Eyes Reports no additional complaints ENT Reports no additional complaints Card Reports no additional complaints Resp Reports no additional complaints GI Reports no additional complaints Reports no additional complaints Physical exam (Primary Care) Vital Signs: Last Vital Signs Pulse 89 08/05/24 13:01 BP 134/80 08/05/24 13:01 Pulse Ox 96 08/05/24 13:01 Oxygen Delivery Method Room Air 08/05/24 13:01 BMI result Body Mass Index 42.0 Tobacco/Smoking Status: Tobacco use Status Tobacco use date assessed 08/05/24 08/05/24 13:02 Patient Tobacco Use Status Never used Tobacco 08/05/24 13:02 e-Cigarette/Vaping Use Never Used 08/05/24 13:02 PHQ-9: PHQ-9 Score PHQ-9: Total score 3 08/05/24 13:11 Depression Screening Interpretation: Negative Thrive Assessment: Date of Thrive Assessment Date Thrive assessed 03/01/24 08/05/24 13:02 Currently or been in a relationship where the following occur: No concerns reported Const General: no acute distress HENMT Head: Yes normal to inspection General nose exam: Abnormal mucous membranes and turbinates present erythematous Face and sinus: Yes sinus tenderness Throat: Yes posterior oropharynx abnormal and Yes postnasal drainage Eyes General: appearance normal, both eyes and all related structures Resp Effort & Inspection: normal respiratory effort Auscultation: clear to auscultation bilaterally Cardio Rhythm: regular rhythm Heart sounds: S1 normal heart sound present and S2 normal heart sound present GI Inspection: Yes normal to inspection Palpation (GI): Soft to palpation Percussion: Yes normal to percussion Auscultation: normal bowel sounds Coding Level of Care Code Est Pt Level 4 (56953) Complex EM visit Add On G2211 Diagnoses DM type 2 (diabetes mellitus, type 2) E11.9 Hypertension, unspecified type I10 Hypertension type: unspecified Overweight E66.3 Hyperlipemia E78.5 Sinusitis J32.9 Additional Codes PHQ-9 - 20411 - PHQ-9 Billing: Yes ([id number]) Assessment & Plan Assessment & Plan (1) DM type 2 (diabetes mellitus, type 2): Code(s): E11.9 - Type 2 diabetes mellitus without complications Category: Medical Plan: A1c is 5.7. Patient was increase Mounjaro to 10 mg decrease Tresiba to 20 units continue NovoLog before meals according to sliding scale. (2) HTN (hypertension): Comment: Benazepril caused cough Code(s): I10 - Essential (primary) hypertension Category: Medical Qualifiers: Hypertension type: unspecified Qualified Code(s): I10 - Essential (primary) hypertension Plan: Patient will start bisoprolol 5 mg instead of labetalol and continue amlodipine with valsartan and Dyazide. Follow-up in 3 months (3) Overweight: Code(s): E66.3 - Overweight Category: Medical Plan: Decrease caloric intake increase physical activity discussed with the patient (4) Hyperlipemia: Code(s): E78.5 - Hyperlipidemia, unspecified Category: Medical Plan: Increase Crestor to 40 mg a day continue low-cholesterol diet (5) Sinusitis: Code(s): J32.9 - Chronic sinusitis, unspecified Category: Medical Plan: Z-Sanju is prescribed and supportive care discussed with the patient Orders: Orders Hemoglobin A1c 3 Months E11.9 - Type 2 diabetes mellitus without complications, E66.3 - Overweight, E78.5 - Hyperlipidemia, unspecified, I10 - Essential (primary) hypertension, J32.9 - Chronic sinusitis, unspecified Microalbumin, Random (w Creat) 3 Months E11.9 - Type 2 diabetes mellitus without complications, E66.3 - Overweight, E78.5 - Hyperlipidemia, unspecified, I10 - Essential (primary) hypertension, J32.9 - Chronic sinusitis, unspecified Comprehensive [place]. Panel Fast 3 Months E11.9 - Type 2 diabetes mellitus without complications, E66.3 - Overweight, E78.5 - Hyperlipidemia, unspecified, I10 - Essential (primary) hypertension, J32.9 - Chronic sinusitis, unspecified Lipid Panel 3 Months E11.9 - Type 2 diabetes mellitus without complications, E66.3 - Overweight, E78.5 - Hyperlipidemia, unspecified, I10 - Essential (primary) hypertension, J32.9 - Chronic sinusitis, unspecified Complete Blood Count Auto Diff 3 Months E11.9 - Type 2 diabetes mellitus without complications, E66.3 - Overweight, E78.5 - Hyperlipidemia, unspecified, I10 - Essential (primary) hypertension, J32.9 - Chronic sinusitis, unspecified Medications: New azithromycin For 250 mg dose pack: take 500 mg today (day 1), then 250 mg for 4 days (days 2-5) PO 6 tabs 0RF bisoprolol fumarate 5 mg PO DAILY 90 tabs 3RF Mounjaro (tirzepatide) 10 mg (0.5 mL) subcut QWEEK 6 mL 2RF NS rosuvastatin (Crestor) 40 mg PO DAILY 90 tabs 2RF Discontinued Mounjaro (tirzepatide) Discontinued Reason: Doctor's Order 7.5 mg (0.5 mL) subcut QWEEK 6 mL 2RF NS rosuvastatin (Crestor) Discontinued Reason: Doctor's Order 20 mg PO DAILY 90 tabs 3RF
== END 2024-08-05 13:47 | disposition home or self-care (01) ==
PROVIDERS: PCP Internal Medicine; Visit Provider Internal Medicine
DX: E11.9 Type 2 diabetes mellitus without complications (principal); I10 Essential (primary) hypertension; E66.3 Overweight; E78.5 Hyperlipidemia, unspecified; J32.9 Chronic sinusitis, unspecified

== ENCOUNTER → 2024-08-05 12:56 | Outpatient (BNVA) | payer OTHER, SELFPAY | PROVIDERS: PCP Internal Medicine; Visit Provider Internal Medicine | DX: E11.9 Type 2 diabetes mellitus without complications (principal); I10 Essential (primary) hypertension; E66.3 Overweight; Z68.41 Body mass index [BMI] 40.0-44.9, adult; E78.5 Hyperlipidemia, unspecified; J32.9 Chronic sinusitis, unspecified; Z79.4 Long term (current) use of insulin; Z79.899 Other long term (current) drug therapy | CPT/HCPCS: 96127 ==

== ENCOUNTER 2025-02-03 11:58 | Outpatient (REF) | payer OTHER, SELFPAY ==
--- OUTSIDE RECORDS SUMMARY | 2025-02-03 12:25 | XMS_ITS | Continuity of Care Document ---
Author Organization [facility] [address] [place] [address] Phone [phone] Care Team Providers Care Assembler Handbags Name Role Phone Renetta Matute Care Team Information Maintenance Welder + [phone] Problems Active Problems Provider Date Type 2 diabetes mellitus Manolo Saunders M.D. O nset: 11/29/2022 Hand joint pain Manolo Saunders M.D. Onset: Essential hypertension Manolo Saunders M.D. Ons et: 02/12/2023 Insulin treated type 2 diabetes mellitus Manolo bustillos M.D. Onset: 02/12/2023 Social History Type Date Description Comments Sex Male Sex Unknown Tobacco Use Start: Unknown Never Smoked Cigarettes Smoking Status Reviewed: 02/12/23 Never Smoked Cigaret rachel ETOH Use Rarely consumes alcohol Allergies and adverse reactions Description No Known Drug Allergies Medications Active Medications SIG Qnty Indications Order ing Provider Date Amlodipine [id number] Tablets 1 by mouth every day 90tabs Manolo Saunders M.D. 02/12/2023 [id number] Tablets one as needed 5tabs Ba rafiq Saunders M.D. 02/12/2023 Tresiba [id number]/ML Solution Pen-Inject Inject 30 Units Subcutaneously Once Daily 15ml E11.9 Manolo Saunders M.D. Z79.4 Trulicity1.5mg/0.5ML Solutio n Pen-Inject Inject 1.5MG (0.5ML) Subcutaneouly Every Week Renetta Matute 000 [id number] Tablets Take 1 Tablet By Mouth Once Daily Renetta Matute Freestyle Ceci 2/Sensor/Fla sh Glucose Monitoring [id number] Misc Change Every 14 Days Renetta Matute Vital Signs Date Vital Result Comment 02/12/2023 10:21am Height 64 inches 5'4 Weight 258.50 lb BMI (Body Mass Index) 44.4 kg/m2 Results Test Acquired Date Facility Test Result H/L Range Note Sedimentation Rate,Automated 02/12/2023 [facility] Sedimentation Rate,Automated 19 MM/HR High (0-15) Rheumatoid Factor 02/12/2023 [facility] Rheumatoid Factor <10.0 IU/mL (<14) Hemoglobin A1c 02/12/2023 Inhouse Hemoglobin A1c 6.9% Glucose Fingerstick 02/12/2023 Inhouse Glucose Fingerstick 184 Procedures Date Code Description Status 04/16/2023 NSHOWOFF No Show Office Visit Complet ed Medical Devices Description No Information Available Encounters Type Date Location Provider Dx Diagnosis Office Visit 02/12/2023 10:30a Main Office Manolo Saunders M.D. E11.9 Type 2 diabetes mellitus without complications Z79.4 ad terminal makeup operator (current) use of insulin I10 Essential (primary) hypertension M25.549 Pain in joints of un specified hand M19.90 Unspecified osteoart hritis, unspecified site Assessments Date Code Description Provider 02/12/2023 E11.9 Type 2 diabetes mellitus without complications Manolo Saunders M.D. 02/12/2023 Z79.4 ad terminal makeup operator (current) use of i nsulin Manolo Saunders M.D. 02/12/2023 I10 Essential (primary) hyperten mio Manolo Saunders M.D. 02/12/2023 M25.549 Hand joint pain Manolo mast M.D. 02/12/2023 M19.90 Unspecified osteoarthritis, unspecified site Manolo Saunders M.D. Plan of Treatment 02/12/2023 - Manolo Saunders M.D.* E11.9 Type 2 diabetes mellitus without complications * Z79.4 [facility] (current) use of insulin * I10 Essential (primary) hypertension * M25.549 Hand joint pain * M19.90 Unspecified osteoarthritis, unspecified site * Functional Status Description No Information Available Mental Status Description No Information Available Referrals Description No Information Available
--- OUTSIDE RECORDS SUMMARY | 2025-02-03 12:25 | XMS_ITS | Clinical Summary ---
Author Organization [facility] ity Address [address] [place] [address] Care Team Providers Care Skein Winding Operator Name Role Phone Unavailable Primary Care Provider Unavailabl e Social History Tobacco Use Types Packs/Day Years Used Date Smoking Tobacco: Never Assessed Sex and Gender Information Value Date Recorded Sex Assigned at Not on file Legal Sex Male 4:37 AM EST Gender Identity Not on file Sexual Orientation Not on file Plan of Treatment Health Maintenance Due Date Last Done Comments DTaP,Tdap,and Td Vaccines (1 - Tdap) 1993 Hepatitis B Vaccines (1 of 3 - 19+ 3-dose series) 1993 Cholesterol Screening (Lipid Panel) 08/26/2023 Colorectal Cancer Screening: Colonoscopy 08/26/2023 Depression Screening 08/26/2023 HIV Screening 08/26/2023 Hepatitis C Screening 08/26/2023 Social Influencers of Health Screening 08/26/2023 COVID-19 Vaccine ( - 2023-2 5 season) 2024 Pneumococcal Vaccine: 50+ Ye ars (1 of 1 - PCV) 2024 Zoster Vaccines (1 of 2) 2024 Influenza Vaccine (#1) 2025 HIB Vaccines Aged Out No longer eligi ble based on patient's age to complete this topic HPV Vaccines Aged Out No longer eligi ble based on patient's age to complete this topic Hepatitis A Vaccines Aged Out No long er eligible based on patient's age to complete this topic IPV Vaccines Aged Out No longer eligi ble based on patient's age to complete this topic MMR Vaccines Aged Out No longer eligi ble based on patient's age to complete this topic Meningococcal ACWY Vaccine Aged Out N o longer eligible based on patient's age to complete this topic Meningococcal B Vaccine Aged Out No l onger eligible based on patient's age to complete this topic Pneumococcal Vaccine: Pediat rics (0 to 5 Years) and At-Risk Patients (6 to 49 Years) Aged Out No longer eligible b ased on patient's age to complete this topic RSV Immunization Patients Un lazaro 20 months Aged Out No longer eligible b ased on patient's age to complete this topic Varicella Vaccines Aged Out No longer eligible based on patient's age to complete this topic
[2025-02-03 14:28] LABS: MANUAL DIFF FLAG NO
[2025-02-03 14:33] LABS: Hematocrit 40.3 % (42.0-52.0); Hemoglobin 13.5 g/dl (14.0-18.0); Imm Gran Abs Auto 0.03 X10*3/uL (0.00-0.03); Imm Gran Pct Auto 0.4 % (0.0-0.4); Lymphocytes Absolute Auto 1.8 X10*3/uL (1.2-4.9); Mean Corpuscular HGB Conc 33.5 g/dl (31.0-36.0); Mean Corpuscular Hemoglobin 27.6 pg (27.0-33.0); Mean Corpuscular Volume 82.2 fL (80.0-98.0); NRBC Abs Auto 0.000 X10*3/uL (0.0-0.012); NRBC Pct Auto 0.0 /100WBC (0.0-0.2); Platelet Count 272 X10*3/uL (160-400); Red Blood Count 4.90 X10*6/uL (4.60-5.80); White Blood Count 8.4 X10*3/uL (4.8-10.8)
[2025-02-03 14:58] LABS: Hemoglobin A1C 140.1524 umol/L; Total Hemoglobin (HGBA1C) 3673.7660 umol/L
[2025-02-03 15:02] LABS: Alanine Aminotransferase 34 U/L (0-40); Albumin Level 4.5 g/dL (3.5-5.0); Alkaline Phosphatase 49 U/L (39-117); Anion Gap 11 (12-20); Aspartate Amino Transferase 26 U/L (5-37); Blood Urea Nitrogen 19 mg/dL (9-16); Calcium 9.1 mg/dL (8.4-10.2); Carbon Dioxide 27 mmol/L (22-29); Chloride 104 mmol/L (96-108); Cholesterol 194 mg/dL (<200); Estimated Glomerular Filt Rate > 60; HDL Cholesterol 56 mg/dL (>40); Potassium 3.6 mmol/L (3.3-5.1); Sodium 138 mmol/L (135-145); Total Protein 6.9 g/dL (6.5-8.0); Triglycerides 55 mg/dL (<150)
[2025-02-03 15:04] LABS: Microalbum/Creatinine Ratio Ur 15.7 ug/mg cr (<30)
== END 2025-02-03 11:59 | disposition home or self-care (01) ==
LOC: HO.HMGCLDS 11:58
PROVIDERS: PCP Internal Medicine; Visit Provider Internal Medicine
DX: I10 Essential (primary) hypertension (principal); E11.9 Type 2 diabetes mellitus without complications; E78.5 Hyperlipidemia, unspecified; E66.3 Overweight; J32.9 Chronic sinusitis, unspecified
CPT/HCPCS: 36415; 80053; 80061; 82043; 82570; 83036; 85025

== ENCOUNTER 2025-02-04 10:09 | Outpatient (AMB) | payer OTHER, SELFPAY ==
[2025-02-04 10:19] VITALS: BP 158/104; PULSE 80; RESP 18; TEMP 36.8; O2SAT 96; BMI 41.7
--- NOTE | 2025-02-04 10:19 | MHC.PC.OV ---
Vital Signs 02/04/25 10:19 02/04/25 10:52 Height 5 ft 4 in Weight 243 lb BMI 41.7 BP 158/104 H 144/86 H Blood Pressure Location Lt brachial Lt brachial Position Sitting Sitting Respiration 18 Pulse 80 Pulse Source Pulse Oximeter Temp 98.2 F Temp Source Oral Pulse Oximetry (%) 96 Oxygen Delivery Method Room Air Intake Visit Reasons: PE Intake Note: pt is here today for a PE. Allergies benazepril Adverse Reaction (Intermediate, Verified 02/04/25 10:20) Cough Medication List - Last Reconciled 02/04/25 by Renetta Matute MD albuterol sulfate 1.25 mg (3 mL) inhalation Q4-6H PRN amlodipine-valsartan 10-320 mg 1 tab PO DAILY flash glucose scanning reader ([employer] Ceci 14 Day [place]) As directed flash glucose sensor ([employer] Ceci 14 Day Sensor kit) monitor blood sugar, change every 14 days Mounjaro (tirzepatide) 10 mg (0.5 mL) subcut QWEEK NS Novolog FlexPen U-100 Insulin (insulin aspart U-100) 6 units before meal if glucose is 90-160, 12 units if glucose >160 subcutaneously use as directed; MDD 36 units NS rosuvastatin (Crestor) 40 mg PO DAILY Tresiba FlexTouch U-100 (insulin degludec) 30 units (0.3 mL) subcut DAILY NS Tobacco use date assessed: 02/04/25 Dental Screening Dental Screen Date: 08/05/24 Did you have a dental visit in the last 12 months?: No Did you have a dental problem in the last 6 months where you did not have access to dental care?: No Was dental information given to patient?: Patient has dentist HPI PE HPI Details Patient presents for physical. he forgot to take his blood pressure medications for a few days and ran out of Crestor a week ago. Patient reports diabetes well controlled on current medications with the fasting glucose readings between 90 to 120. He has been eating 3 meals with the snacks in between and denies hypoglycemia episodes. [facility] Medical History Sleep apnea Hyperlipemia Overweight HTN (hypertension) DM type 2 (diabetes mellitus, type 2) Surgical History (Updated 02/04/25 @ 11:00 by Renetta Matute MD) Hx of colonoscopy History of shoulder surgery History of esophagogastroduodenoscopy (EGD) Family History Father No problems noted. Mother Substance use disorder Social History Housing: House Do you presently have visiting nurse or other home services: No Patient Tobacco Use Status: Never used Tobacco e-Cigarette/Vaping Use: Never Used service: No Current occupational status: employed Current occupational exposures/hazards: No Cognitive needs: No Hearing needs: No Vision needs: Yes Questionnaire PHQ-9 Over the last 2 weeks, how often have you been bothered by any of the following problems? 1. Little interest or pleasure in doing things: not at all 2. Feeling down, depressed, or hopeless: not at all 3. Trouble falling or staying asleep, or sleeping too much: not at all 4. Feeling tired or having little energy: several days 5. Poor appetite or overeating: not at all 6. Feeling bad about yourself - or that you are a failure or have let yourself or your family down: not at all 7. Trouble concentrating on things, such as reading the newspaper or watching television: not at all 8. Moving or speaking so slowly that other people could have noticed. Or the opposite - being so fidgety or restless that you have been moving around a lot more than usual: not at all 9. Thoughts that you would be better off or of hurting yourself in some way: not at all Total score: 1 Depression Screening Interpretation: Negative Depression Screening Done: Yes 90196 - PHQ-9 Billing: Yes Source: Developed by Drs. Abimael Dinh, Hedy Lockett, Damon Frank and colleagues, with an educational reggie from [employer]. Thrive Questionnaire Date Thrive assessed: 02/04/25 I am a: Patient What is your living situation today?: I have a steady place to live Within the past 12 months, did the food you bought not last and you didn't have the money to get more?: Never true Within the past 12 months, did you worry whether your food would run out before you got money to buy more?: Never true Do you have trouble paying for medicines?: No Do you have trouble getting transportation to medical appointments?: No Do you have trouble paying your heating and electricity bill?: Yes Do you have trouble taking care of your child, family member or friend?: No Do you have trouble with day-to-day activities such as bathing, preparing meals, shopping, managing finances, etc.?: No Are you currently unemployed and looking for a job?: No Are you interested in more education?: No Please select the resources that you would like help with: Utilities Currently or been in a relationship where the following occur: No concerns reported THRIVE Score: 1 AUDIT C Alcohol Use Questionnaire (AUDIT-C) 1. How often do you have a drink containing alcohol?: Never 3. How often do you have six or more drinks on one occasion?: Never Total Score: 0 FAITH-7 AMB Questionnaire FAITH-7 Date FAITH - 7 assessed: 02/04/25 Feeling nervous, anxious, or on edge: 0 = Not at all Not being able to stop or control worryin = Several days Worrying too much about different things: 1 = Several days Trouble relaxin = Several days Being so restless that it is hard to sit still: 0 = Not at all Becoming easily annoyed or irritable: 0 = Not at all Feeling afraid as if something awful might happen: 0 = Not at all Total FAITH-7 score (0-4 normal; 5-9 mild; 10-14 moderate; 15-21 severe): 3 Source: Developed by Drs. Abimael Dinh, Hedy Lockett, Damon Frank and colleagues, with an educational reggie from [employer]. FAITH-7 Assessment Billing FAITH-7 Assessment Tool: FAITH-7 Assessment 11148 Review of Systems Const All systems reviewed & are unremarkable except as noted in HPI and below Eyes Reports no additional complaints ENT Reports no additional complaints Card Reports no additional complaints Resp Reports no additional complaints GI Reports no additional complaints Physical exam (Primary Care) Vital Signs: Last Vital Signs Temp 98.2 F 02/04/25 10:19 Pulse 80 02/04/25 10:19 Resp 18 02/04/25 10:19 BP 144/86 H 02/04/25 10:52 Pulse Ox 96 02/04/25 10:19 Oxygen Delivery Method Room Air 02/04/25 10:19 BMI result Body Mass Index 41.7 Tobacco/Smoking Status: Tobacco use Status Tobacco use date assessed 02/04/25 02/04/25 10:27 Patient Tobacco Use Status Never used Tobacco 02/04/25 10:27 e-Cigarette/Vaping Use Never Used 02/04/25 10:27 PHQ-9: PHQ-9 Score PHQ-9: Total score 1 02/04/25 10:52 Depression Screening Interpretation: Negative Thrive Assessment: Date of Thrive Assessment Date Thrive assessed 02/04/25 02/04/25 10:27 Currently or been in a relationship where the following occur: No concerns reported Const General: no acute distress HENMT Head: Yes normal to inspection Ears: hearing grossly normal bilaterally General nose exam: Normal external nose present Face and sinus: Yes normal facial exam Eyes General: appearance normal, both eyes and all related structures Resp Effort & Inspection: normal respiratory effort Auscultation: clear to auscultation bilaterally Cardio Rhythm: regular rhythm Heart sounds: S1 normal heart sound present and S2 normal heart sound present GI Inspection: Yes normal to inspection Palpation (GI): Soft to palpation Percussion: Yes normal to percussion Auscultation: normal bowel sounds Extrem Other: Diabetic foot exam skin is intact monofilament and vibration sensation intact bilaterally General: Yes no clubbing, cyanosis or edema Coding Level of Care Code Est Pt Prev Care 40-64y(13942) Diagnoses Hypertension, unspecified type I10 Hypertension type: unspecified Hyperlipemia E78.5 DM type 2 (diabetes mellitus, type 2) E11.9 Annual physical exam Z00.00 Additional Codes FAITH-7 Assessment Billing - FAITH-7 Assessment Tool: FAITH-7 Assessment [id number] ([id number]) PHQ-9 - 73011 - PHQ-9 Billing: Yes ([id number]) Assessment & Plan Assessment & Plan (1) HTN (hypertension): Comment: Benazepril caused cough Code(s): I10 - Essential (primary) hypertension Category: Medical Qualifiers: Hypertension type: unspecified Qualified Code(s): I10 - Essential (primary) hypertension Plan: Medications compliance discussed with the patient. He will restart amlodipine with valsartan follow-up in 6 weeks (2) Hyperlipemia: Code(s): E78.5 - Hyperlipidemia, unspecified Category: Medical Plan: Medication compliance discussed with the patient restart Crestor (3) DM type 2 (diabetes mellitus, type 2): Code(s): E11.9 - Type 2 diabetes mellitus without complications Category: Medical Plan: A1c is 5.6. Patient has not been losing significant amount of weight for the last 3 and Mounjaro will be increased to 12.5 mg. Patient will decrease Tresiba to 22 units and continue NovoLog before meals. (4) Annual physical exam: Code(s): Z00.00 - Encounter for general adult medical examination without abnormal findings Category: Medical Plan: Well-balanced diet regular exercise weight loss discussed with the patient. Medications: New Mounjaro (tirzepatide) 12.5 mg (0.5 mL) subcut QWEEK 6 mL 0RF NS Changed From Tresiba FlexTouch U-100 (insulin degludec) 30 units (0.3 mL) subcut DAILY 30 mL 3RF NS To Tresiba FlexTouch U-100 (insulin degludec) 22 units (0.22 mL) subcut DAILY 30 mL 3RF NS Refilled amlodipine-valsartan 10-320 mg 1 tab PO DAILY 90 tabs 3RF rosuvastatin (Crestor) 40 mg PO DAILY 90 tabs 3RF Novolog FlexPen U-100 Insulin (insulin aspart U-100) 6 units before meal if glucose is 90-160, 12 units if glucose >160 subcutaneously use as directed; 30 mL 3RF MDD 36 units NS Discontinued Mounjaro (tirzepatide) Discontinued Reason: Doctor's Order 10 mg (0.5 mL) subcut QWEEK 6 mL 0RF NS
--- OUTSIDE RECORDS SUMMARY | 2025-02-04 10:41 | XMS_ITS | Clinical Summary ---
Author Organization [facility] ity Address [address] [place] [address] Care Team Providers Care Supervisor Shed Workers Name Role Phone Unavailable Primary Care Provider [...]
--- OUTSIDE RECORDS SUMMARY | 2025-02-04 10:41 | XMS_ITS | Continuity of Care Document ---
Author Organization [facility] [address] [place] [address] Phone [phone] Care Team Providers Care Immigration Associate Name Role Phone Renetta Matute Care Team Information Secondary Social Studies Teacher + [phone] Problems Active Problems Provider Date Type 2 diabetes mellitus Manolo Saunders M.D. O nset: 11/29/2022 Hand joint pain Manolo Saunders M.D. Onset: Essential hypertension Manolo Saunders M.D. Ons et: 02/12/2023 Insulin treated type 2 diabetes mellitus Manool bustillos M.D. Onset: 02/12/2023 Social History Type Date Description Comments Sex Male Sex Unknown Tobacco Use Start: Unknown Never Smoked Cigarettes Smoking Status Reviewed: 02/12/23 Never Smoked Cigaret rachel ETOH Use Rarely consumes alcohol Allergies and adverse reactions Description No Known Drug Allergies Medications Active Medications SIG Qnty Indications Order ing Provider Date Amlodipine [id number] Tablets 1 by mouth every day 90tabs Manolo Saunders M.D. 02/12/2023 [id number] Tablets one as needed 5tabs Ba rafiq Saunders M.D. 02/12/2023 Tresiba [id number]/ML Solution Pen-Inject Inject 30 Units Subcutaneously Once Daily 15ml E11.9 Manolo Saunders M.D. Z79.4 Trulicity1.5mg/0.5ML Solutio n Pen-Inject Inject 1.5MG (0.5ML) Subcutaneouly Every Week Renetta Matute 000 [id number] Tablets Take 1 Tablet By Mouth Once Daily Renetta Matute Freestyle Ceci 2/Sensor/Fla sh Glucose Monitoring [id number] Misc Change Every 14 Days Renetta Matute Vital Signs Date Vital Result Comment 02/12/2023 10:21am Height 64 inches 5'4 Weight 258.50 lb BMI (Body Mass Index) 44.4 kg/m2 Results Test Acquired Date Facility Test Result H/L Range Note Sedimentation Rate,Automated 02/12/2023 [facility] Sedimentation Rate,Automated 19 MM/HR High (0-15) Rheumatoid Factor 02/12/2023 [facility] Rheumatoid Factor <10.0 IU/mL (<14) [...] Type 2 diabetes mellitus without complications Z79.4 terminal operator (current) use of insulin I10 Essential (primary) hypertension M25.549 Pain in joints of un specified hand M19.90 Unspecified osteoart hritis, unspecified site Assessments Date Code Description Provider 02/12/2023 E11.9 Type 2 diabetes mellitus without complications Manolo Saundesr M.D. 02/12/2023 Z79.4 terminal operator (current) use of i nsulin Manolo Saunders M.D. 02/12/2023 I10 Essential (primary) hyperten mio Manolo Saunders M.D. 02/12/2023 M25.549 Hand joint pain Manolo mast M.D. 02/12/2023 M19.90 Unspecified osteoarthritis, unspecified site Manolo Saunders M.D. Plan of Treatment 02/12/2023 - Manolo Saunders M.D.* E11.9 Type 2 diabetes mellitus without complications * Z79.4 jail (current) use of insulin * I10 Essential (primary) hypertension * M25.549 Hand joint pain * M19.90 Unspecified osteoarthritis, unspecified site * Functional Status Description No Information Available Mental Status Description No Information Available Referrals Description No Information Available
[2025-02-04 10:52] VITALS: BP 144/86
== END 2025-02-04 11:06 | disposition home or self-care (01) ==
LOC: HO.HMCC 10:10
PROVIDERS: PCP Internal Medicine; Visit Provider Internal Medicine
DX: I10 Essential (primary) hypertension (principal); E78.5 Hyperlipidemia, unspecified; E11.9 Type 2 diabetes mellitus without complications; Z00.00 Encounter for general adult medical examination without abnormal findings

== ENCOUNTER → 2025-02-04 10:09 | Outpatient (BNVA) | payer OTHER, SELFPAY | PROVIDERS: PCP Internal Medicine; Visit Provider Internal Medicine | DX: Z00.00 Encounter for general adult medical examination without abnormal findings (principal); I10 Essential (primary) hypertension; E78.5 Hyperlipidemia, unspecified; E11.9 Type 2 diabetes mellitus without complications; Z79.4 Long term (current) use of insulin; Z79.85 Long-term (current) use of injectable non-insulin antidiabetic drugs; Z13.31 Encounter for screening for depression; Z13.39 Encounter for screening examination for other mental health and behavioral disorders | CPT/HCPCS: 96127 ==